=== PATIENT | male | born 1935 | race Caucasian/White ===

== ENCOUNTER → 2016-09-25 09:29 | Outpatient (CLI) | payer MEDICARE, OTHER ==
[2015-03-25 22:11] VITALS: BMI 23.8
[~2016-09-25 09:29] MED LIST: ASPIRIN EC81 M1 PO; BENICAR HCT 40-1 TA1 PO; BETAPACE240 MG PO; DEXILANT PO; FLAGYL500 MG PO; FLUTICASONE PRO16 GM NASAL; IPRAT-ALBUT 0.5-3 ML UPD; IRON PO; K-DUR20 MEQ PO; KLOR-CON 1010 MEQ PO; LASIX PO; LEVAQUIN500 MG PO; LUMIGAN 0.03 %2.5 ML EACH EYE; MAG-OX 400 MG400 MG PO; MULTI-DAY VITAM1 TAB PO; MYAMBUTOL400 MG PO; NEOMYCIN SULFA500 MG PO; NORVASC2.5 MG PO; POTASSIUM PO; RIFADIN300 MG PO; SINGULAIR10 MG PO; TESSALON PERLE100 MG PO; TRIBENZOR 40-51 EACH PO; VICODIN 5/500 T1 TAB PO; XALATAN 0.0052.5 ML EACH EYE; ZOFRAN4 MG PO
== END | disposition home or self-care (01) ==
LOC: D.RAD 09:29
DX: J44.9 Chronic obstructive pulmonary disease, unspecified (principal)

== ENCOUNTER → 2017-01-08 09:43 | Outpatient (CLI) | payer MEDICARE, OTHER ==
[2015-03-25 22:11] VITALS: BMI 23.8
[2017-01-08 10:34] LABS: BASOPHILS 0.3 % (0-2); EOSINOPHILS 2.5 % (0-7); HEMATOCRIT 29.5 % (42.0-54.0); HEMOGLOBIN 9.5 g/dL (13.5-17.5); IMMATURE GRANULOCYTES 0.3 % (0-5); LYMPHOCYTES 14.3 % (15-50); MCH 28.5 pg (26.0-34.0); MCHC 32.2 g/dL (31.0-37.0); MCV 88.6 fL (80.0-100.0); MEAN PLATELET VOLUME 9.8 fL (7.4-10.4); MONOCYTES 12.4 % (2-11); NEUTROPHILS 70.2 % (40-80); RBC 3.33 10x6/uL (4.20-6.10); RDW 15.4 % (11.5-14.5); WBC 7.2 10x3/uL (4.8-10.8)
[2017-01-08 10:47] LABS: PLATELET COUNT 225 10x3/uL (130-400)
[2017-01-08 10:53] LABS: ALBUMIN 3.2 g/dL (3.4-5.0); BILIRUBIN - DIRECT 0.05 mg/dL (0.00-0.30); BILIRUBIN - INDIRECT 0.15 mg/dL (0.00-1.00); BILIRUBIN - TOTAL 0.2 mg/dL (0.2-1.3); PROTEIN - SERUM 7.1 g/dL (6.4-8.2)
== END | disposition home or self-care (01) ==
LOC: D.RAD 09:00
PROVIDERS: Internal Medicine Pulmonary Disease
DX: A31.0 Pulmonary mycobacterial infection (principal)

== ENCOUNTER → 2017-03-12 10:27 | Outpatient (CLI) | payer MEDICARE, OTHER ==
[2015-03-25 22:11] VITALS: BMI 23.8
[~2017-03-12 10:27] MED LIST changes: +BETAPACE 80 MG80 MG PO; +GABAPENTIN100 MG PO; +NIFEDIPINE ER60 MG PO; +PLAVIX75 MG PO
== END | disposition home or self-care (01) ==
LOC: D.CT 10:27
DX: R04.2 Hemoptysis (principal)

== ENCOUNTER 2017-03-19 14:17 | Inpatient (IN) | payer MEDICARE, OTHER ==
--- NOTE | ~2017-03-19 | HEMODYNAMI ---
PATIENT:GABINO ESTRADA MEDICAL RECORD: [id number] : 33 [id number] ADMISSION DATE: 03/19/17 Generatedon:03/20/20179:18 Patient name: GABINO ESTRADA Patient #: [id number] SSN: : [id number] Date of study: 03/20/2017 Page: Of Hemodynamic Procedure Report Patient Data Patient Demographics Procedure consent was obtained First Name: GABINO Gender: Male Last Name: SEAN : 1935 [facility] Initial: Temo Age: 81 year(s) Patient #: [id number] Race: Unknown Additional ID: [id number] Contact details Address: [place] [address] State: [place] City: [place] Zip code: [address] Past Medical History Allergies Allergen Reaction Date Comments Reported Other allergy 03/20/2017 Ibuprofen Admission Admission Data Admission Date: 03/19/2017 Admission Time: 14:17 Room #: [facility] Lab Results Lab Result Date: 03/20/2017 Lab Result Time: 4:23 Biochemistry Name Units Result Min Max BUN mg/dl 21 --(----)-* 7 18 Creatinine mg/dl 1.4 --(----)*- 0.6 1.3 Potassium mmol/l 2.9 *-(----)-- 3.5 5.1 CBC Name Units Result Min Max Hematocrit % 32.2 *-(----)-- 42 54 Hemoglobin g/dl 10.4 *-(----)-- 13.5 17.5 Procedure Procedure Types Cath Procedure Diagnostic Procedure C [facility] w/Coronaries PCI Procedure Coronary Stent Initial Miscellaneous Procedures Moderate Sedation up to 30 minutes Procedure Description Procedure Date Procedure Date: 03/20/2017 Procedure Start Time: 8:56 Procedure End Time: 9:16 Procedure Staff Name Function Tres Baldwin MD Performing Physician Geoffrey Olvera RN Nurse Peyton Shanks RT Scrub Tavo King RT Monitor Procedure Data Cath Procedure Fluoroscopy Diagnostic fluoroscopy Total fluoroscopy Time: 5 time: 5 min min Diagnostic fluoroscopy Total fluoroscopy dose: 294 dose: 294 mGy mGy Contrast Material Contrast Material Type Amount (ml) Isovue 300 114 Entry Location Entry Primary Successful Side Size Upsize Upsize Entry Closure Succes sful Closure Location (Fr) 1 (Fr) 2 (Fr) Remarks Device Remarks Femoral Right 5 Fr 6 Fr Exoseal artery Short Estimated blood loss: 10 ml Diagnostic catheters Device Type Used For End Catheter Placement Cordis 5Fr Pigtail Procedure Catheter (MP) Cordis 5Fr JL 4.0 Procedure Catheter (MP) Cordis 5Fr 3DRC Catheter Procedure (MP) Procedure Complications No complications Procedure Medications Medication Administration Route Dosage Oxygen NC 2 l/min Heparin Flush Bag added to field 2 bags (1000units/500ml NS) 0.9% NaCl I.V. 100 ml/hr Radial Cocktail added to field 1 syringe (Verapomil 2mg/Nitro 400mcg/Heparin 1500units) Fentanyl I.V. 25 mcg Versed I.V. 0.5 mg Heparin Bolus I.V. 3000 units Hemodynamics Rest HGB: 10.4 (g/dl) Heart Rate: 69 (bpm) Pressure Samples Time Site Value (mmHg) Purpose Heart Use Rate(bpm) 9:01 LV 120/12,18 Snapshot 59 Snapshots Pre Cath Intra NCS Post Cath Vital Signs Time Heart Resp SPO2 etCO2 NIBP (mmHg) Rhythm Pain Sedation Rate (ipm) (%) (mmHg) Status Level (bpm) 8:38:15 68 22 94 0 176/101(149) NSR 0 (11) 10(A) , No pain 8:42:31 63 20 94 0 168/92(144) NSR 0 (11) 10(A) , No pain 8:46:43 64 19 93 0 151/102(132) NSR 0 (11) 10(A) , No pain 8:50:59 60 20 93 0 137/87(113) NSR 0 (11) 10(A) , No pain 8:55:15 60 20 89 0 140/78(124) NSR 0 (11) 9(A) , No pain 8:59:27 59 20 91 0 138/91(114) NSR 0 (11) 9(A) , No pain 9:03:43 60 23 88 0 143/83(122) NSR 0 (11) 9(A) , No pain 9:08:01 58 20 88 0 140/80(120) NSR 0 (11) 9(A) , No pain 9:12:19 59 22 89 0 122/80(109) NSR 0 (11) 9(A) , No pain 9:17:16 59 21 88 0 140/71(110) NSR 0 (11) 9(A) , No pain Medications Time Medication Route Dose Verified Delivered Reason Notes Effectiveness by by 8:36:41 Oxygen NC 2 l/min Tres Hale Per physician Denny Olvera RN 8:36:52 Heparin Flush added 2 bags Tres Hale used for Bag to Denny Olvera RN procedure (1000units/500ml field NS) 8:37:03 0.9% NaCl I.V. 100 Tres Hale Per physician ml/hr Denny Olvera RN 8:37:12 Radial Cocktail added 1 Tres Hale used for (Verapomil to syringe Denny Olvera RN procedure 2mg/Nitro field 400mcg/Heparin 1500units) 8:54:12 Fentanyl I.V. 25 mcg Tres Hale for sedation Denny Olvera RN 8:54:27 Versed I.V. 0.5 mg Tres Hale for sedation Denny Olvera RN 9:05:54 Heparin Bolus I.V. 3000 Tres Hale for units Denny Olvera RN anticoagulation Procedure Log Time Note 8:10:00 Geoffrey Olvera RN sent for patient. Start room use. 8:27:01 Time tracking: Regular hours 8:27:04 Plan of Care:Hemodynamics will remain stable., Cardiac rhythm will remain stable., Comfort level will be maintained., Respiratory function will remain adequate., Patient/ family verbilizes understanding of procedure., Procedure tolerated without complication., Recovers from procedure without complications.. 8:31:54 Patient received from Med II to CCL 3 Alert and oriented. Tansferred to table in Supine position. 8:31:56 Warm blankets applied, and jose hugger turned on for patient comfort. 8:31:56 Correct patient and procedure confirmed by team. 8:31:58 Signed procedure consent form obtained from patient. 8:36:41 Oxygen 2 l/min NC was administered by Geoffrey Olvera RN; Per physician; 8:36:52 Heparin Flush Bag (1000units/500ml NS) 2 bags added to field was administered by Geoffrey Olvera RN; used for procedure; 8:37:03 0.9% NaCl 100 ml/hr I.V. was administered by Geoffrey Olvera RN; Per physician; 8:37:12 Radial Cocktail (Verapomil 2mg/Nitro 400mcg/Heparin 1500units) 1 syringe added to field was administered by Geoffrey Olvera RN; used for procedure; 8:37:14 Vital chart was started 8:43:00 ECG and BP/O2 sat monitors applied to patient. 8:43:07 Baseline sample Acquired. 8:43:11 Rhythm: sinus rhythm 8:45:32 H&P Date Dictated: 03/19/2017 Within 30 days and on chart.. 8:45:34 Pre-procedure instructions explained to patient. 8:45:35 Pre-op teaching completed and patient verbalized understanding. 8:45:36 Family unavailable. 8:45:37 Patient NPO since Midnight. 8:45:45 Patient allergic to Other allergyIbuprofen 8:45:46 Is the patient allergic to Iodine/contrast media? No. 8:45:47 Is patient on blood thinner?Yes 8:45:49 ACC The patient was administered the following blood thiners within the last 24 hours: ACCPlavix 8:45:51 Patient diabetic? No. 8:45:53 Previous problem with sedation/anesthesia? No ? 8:45:54 Snore? Yes 8:45:55 Sleep apnea? No 8:45:55 Deviated septum? No 8:45:56 Opens mouth fully? Yes 8:45:57 Sticks out tongue? Yes 8:45:58 Airway obstruction? No ? 8:45:59 Dentures? No ? 8:46:02 Modified Rg's test Ulnar < 7 seconds 8:46:04 Patient pain scale 0/10 ?. 8:46:15 IV patent on arrival in left forearm with 0.9% NaCl at [facility]. 8:47:21 Lab Result : Potassium 2.9 mmol/l 8:47:21 Lab Result : Creatinine 1.4 mg/dl 8:47:21 Lab Result : BUN 21 mg/dl 8:47:21 Lab Result : Hemoglobin 10.4 g/dl 8:47:21 Lab Result : Hematocrit 32.2 % 8:47:24 Lab results completed and on chart. 8:47:26 Right Radial & Right Groin area was prepped with chlora-prep and draped in sterile fashion 8:47:27 Alarms reviewed by R. N. 8:47:27 Sharps counted by scrub and verified by R.N. 8:47:30 Use device set Radial Dx 8:47:34 Acist Manifold opened to sterile field. 8:47:34 Tegaderm 4 x 4 opened to sterile field. 8:47:34 Acist Hand Control opened to sterile field. 8:47:35 Acist Syringe opened to sterile field. 8:47:36 Medline Cath Pack opened to sterile field. 8:47:36 Bag Decanter opened to sterile field. 8:47:36 Terumo 6Fr Slender Glidesheath opened to sterile field. 8:47:37 St Jah 260cm J .035 wire opened to sterile field. 8:53:29 Zero performed for pressure channel P1 8:53:47 Physician arrived 8:53:48 --------ALL STOP TIME OUT------ 8:53:48 Final Timeout: patient, procedure, and site verified with staff and physician. All members of the team are in agreement. 8:53:49 Right Radial & Right Groin site verified by team. 8:53:51 Physical assessment completed. ASA score P 2 - A patient with mild systemic disease as per Tres Baldwin MD. 8:53:54 Sedation plan: IV Moderate Sedation Versed, Fentanyl 8:54:12 Fentanyl 25 mcg I.V. was administered by Geoffrey Olvera RN; for sedation; 8:54:27 Versed 0.5 mg I.V. was administered by Geoffrey Olvera RN; for sedation; 8:56:09 Procedure started. 8:56:09 Full Disclosure recording started 8:56:26 Local anesthetic to right radial artery with Lidocaine 2% by Tres Baldwin MD.INITIAL ACCESS ONLY 8:57:21 Local anesthetic to right femoral artery with Lidocaine 2% by Tres Baldwin MD.ADDITIONAL ACCESS 8:57:31 Use device set Multipack Set 8:57:37 Terumo 5Fr [place] Sheath opened to sterile field. 8:57:38 Diagnostic Infinity 5Fr Multipack catheter opened to sterile field. 8:59:01 A 5 Fr sheath was inserted into the Right Femoral artery 9:00:17 A Cordis 5Fr Pigtail Catheter (MP) was advanced over the wire and used for Procedure. 9:00:23 LV gram done using SUAREZ 9:00:26 Injector settings: Ml/sec: 10, Volume: 20, 9:00:27 LV hemodynamics recorded. 9:01:06 EF : 60 % 9:01:07 Catheter exchanged over wire. 9:01:12 A Cordis 5Fr JL 4.0 Catheter (MP) was advanced over the wire and used for Procedure. 9:01:45 LCA angiography performed. 9:02:50 Catheter exchanged over wire. 9:02:55 A Cordis 5Fr 3DRC Catheter (MP) was advanced over the wire and used for Procedure. 9:03:46 [employer] Launcher 6Fr 3DRC guide catheter opened to sterile field. 9:05:06 ScaleArcisper J 300cm 0.014 guide wire opened to sterile field. 9:05:07 [employer] BasixCompak Inflation Kit opened to sterile field. 9:05:14 Terumo 6Fr [place] Sheath opened to sterile field. 9:05:21 Catheter removed. 9:05:34 Sheath upsized to a 6 Fr Short. 9:05:42 6 Fr 3DRC guide catheter was inserted over the wire 9:05:47 whisper wire advanced. 9:05:54 Heparin Bolus 3000 units I.V. was administered by Geoffrey Olvera RN; for anticoagulation; 9:06:41 Wire advanced across lesion. 9:08:45 Inflation Number: 1 A Medtronic Integrity 3.5 X 15 stent was prepped and advanced across the Prox RCA. The stent was deployed at 21 RINA for 0:10 (min:sec). 9:08:46 Stent catheter was removed intact over wire. 9:08:50 Wire removed. 9:08:56 Guide Catheter removed. unable to get back-up support 9:09:02 Medtronic Launcher 6Fr AR 2.0 guide catheter opened to sterile field. 9:09:10 6 Fr AR 2 guide catheter was inserted over the wire 9:09:49 WHISPER wire advanced. 9:11:03 Inflation number: 2 The stent balloon was then re-inflated across the Prox RCA to 21 RINA for 0:10 (min:sec). 9:11:36 Inflation number: 3 The stent balloon was then re-inflated across the Prox RCA to 23 RINA for 0:10 (min:sec). 9:11:47 Stent catheter was removed intact over wire. 9:11:48 Wire removed. 9:11:48 Guide catheter removed. 9:12:05 Cordis 6Fr Exoseal opened to sterile field. 9:12:48 Sheath removed intact; hemostasis achieved with Exoseal to the Right Femoral artery. 9:12:50 Procedure ended.(Physican Out) 9:15:23 Fluoroscopy time 05.00 minutes. 9:15:31 Fluoroscopy dose: 294 mGy 9:15:31 Flurop Dose total: 294 9:15:34 Contrast amount:Isovue 300 114ml. 9:15:35 Sharps counted by scrub and verified by R.N. 9:15:36 Insertion/operative site no bleeding no hematoma. 9:15:38 Post-op/insertion site Right Femoral artery dressed using a 4 x 4 and Tegaderm. 9:15:42 Post right femoral artery:stable, soft, clean and dry 9:15:43 Post Procedure Pulses reassessed and unchanged 9:15:45 Post-procedure physical assessment completed. ASA score P 2 - A patient with mild systemic disease as per Tres Baldwin MD. 9:15:46 Post procedure rhythm: unchanged. 9:15:49 Estimated blood loss: 10 ml 9:15:50 Post procedure instruction explained to patient.Patient verbalizes understanding. 9:15:51 Patient needs reinforcement of post procedure teaching. 9:16:06 Procedure type changed to Cath procedure, Diagnostic procedure, LHC, LHC w/Coronaries, PCI procedure, Coronary Stent Initial, Miscellaneous Procedures, Moderate Sedation up to 30 minutes 9:16:28 Procedure and supply charges have been captured, reviewed, submitted and are correct. 9:16:30 Procedure Complication : No complications 9:16:32 Vital chart was stopped 9:16:32 See physician's report for complete and final results. 9:16:34 Report given to PCU. 9:16:36 Patient transfered to PCU with Stretcher. 9:16:37 Procedure ended. 9:16:37 Full Disclosure recording stopped 9:16:57 End room use (Document Last) Intervention Summary Intervention Notes Time ActionType Lesion and Equipment Action# Pressure Duration Attributes Used 9:08:45 Place stent Prox RCA Medtronic 1 21 00:10 Integrity 3.5 X 15 stent 9:11:03 Reinflate Prox RCA Medtronic 2 21 00:10 stent Integrity balloon 3.5 X 15 stent 9:11:36 Reinflate Prox RCA Medtronic 3 23 00:10 stent Integrity balloon 3.5 X 15 stent Device Usage Item Name Manufacture Quantity Catalog Hospital Part Current Minimal Lot# / Number Charge Number Stock Stock Serial# Code Acist Acist 1 [id number] 777545 890319 605132 5 [employer] Tegaderm 4 3M 1 [id number] 006175 633370 846555 5 x 4 Acist Hand Acist 1 27463 698196 455926 426277 5 [employer] Acist Acist 1 89104 218249 061010 424157 20 Syringe Medical Systems Inc Medline Cardinal 1 [id number] 335506 61788 116493 5 Cath Pack Health Bag Microtek 1 2002S 686515 10184 400066 5 [employer]olphin Inc. Terumo 6Fr Terumo 1 [id number] 015796 913165 363593 [address] Jah 1 454930 320666 726419 298487 30 260cm J .035 wire Terumo 5Fr Terumo 1 [id number] 397526 835282 226678 40 [place] Sheath Diagnostic Cardinal 1 [id number] 615897 95819 699778 30 Infinity Health 5Fr Multipack catheter Cordis 5Fr Cardinal 1 147538 5 Pigtail Health Catheter (MP) Cordis 5Fr Cardinal 1 597536 5 JL 4.0 Health Catheter (MP) Cordis 5Fr Cardinal 1 289354 5 3DRC Health Catheter (MP) Medtronic Medtronic 1 [id number] 516890 625813 018115 1 Launcher 6Fr 3DRC guide catheter Crenshaw Crenshaw 1 [id number] 831773 796446 441153 5 Whisper J Vascular 300cm 0.014 guide wire Merit Merit 1 [id number] 575837 462638 479687 15 Cogni[employer] Medical Inflation Kit Terumo 6Fr Terumo 1 [id number] 530552 257713 893455 40 [place] Sheath Medtronic Medtronic 1 [id number] 240378 341874 7 [id number] Integrity 3.5 X 15 stent Medtronic Medtronic 1 [id number] 090611 77156 985519 1 Launcher 6Fr AR 2.0 guide catheter Cordis 6Fr Cardinal 1 [id number] 867849 086726 427332 10 [facility] PowerSmart Signature Audit Elizabeth Stage Time Signature Unsigned Intra-Procedure 03/20/2017 Tavo King 9:18:32 AM RT(R) Signatures Monitor : Tavo King RT Signature : Date : Time : [address] [address]
[~2017-03-19 14:17] MED LIST changes: -BETAPACE 80 MG80 MG PO; -GABAPENTIN100 MG PO; -NIFEDIPINE ER60 MG PO; -PLAVIX75 MG PO
--- NOTE | 2017-03-19 14:35 | NUR ---
RECIVED PER WC FROM DR LNOGORIA OFFICE. ADMIT ASSESSMENT PER RN. SON AT SIDE.
[2017-03-19 15:19] LABS: BASOPHILS 0.7 % (0-2); EOSINOPHILS 5.2 % (0-7); HEMATOCRIT 32.2 % (42.0-54.0); HEMOGLOBIN 10.4 g/dL (13.5-17.5); IMMATURE GRANULOCYTES 0.2 % (0-5); LYMPHOCYTES 12.4 % (15-50); MCH 28.4 pg (26.0-34.0); MCHC 32.3 g/dL (31.0-37.0); MEAN PLATELET VOLUME 9.5 fL (7.4-10.4); MONOCYTES 16.7 % (2-11); NEUTROPHILS 64.8 % (40-80); PLATELET COUNT 247 10x3/uL (130-400); RBC 3.66 10x6/uL (4.20-6.10); RDW 15.4 % (11.5-14.5); WBC 4.6 10x3/uL (4.8-10.8)
[2017-03-19 15:33] VITALS: BP 164/72; BMI 24.4
[2017-03-19 15:57] LABS: APTT 36.8 SECONDS (22.8-39.4); INR 1.03 (0.85-1.17); PROTIME 13.4 SECONDS (11.6-15.0)
[2017-03-19 16:44] VITALS: BP 164/72
[2017-03-19 17:05] LABS: CALC OSMOLALITY 256 mosm/kg (275-300); CALCIUM 8.7 mg/dL (8.5-10.1); CARBON DIOXIDE 29.9 mmol/L (21.0-32.0); CHLORIDE - SERUM 87 mmol/L (98-107); CKMB 0.7 U/L (0.0-3.6); CREATININE - SERUM 1.3 mg/dL (0.6-1.3); GLUCOSE 98 mg/dL (74-106); POTASSIUM - SERUM 3.2 mmol/L (3.5-5.1); SODIUM 127 mmol/L (136-145); TROPONIN-I < 0.017 ng/mL (0.000-0.060); UREA NITROGEN 18 mg/dL (7-18); eGFR NON AFRICAN AMERICAN 56 mL/min (90-120)
--- NOTE | 2017-03-19 17:05 | NUR ---
SON REMAINS AT SIDE. WITHOUT CHANGES OR DISTRESS NOTED AT THIS TIME. DENIES NEEDS.
[2017-03-19] MEDS ORDERED: GABAPENTIN100 MG PO (18:49)
[2017-03-19 19:00] VITALS: BP 137/69
--- NOTE | 2017-03-19 21:11 | NUR ---
TYLENOL 500 MG TAB GIVEN FOR C/O PAIN TO BILATERAL FEET.
--- NOTE | 2017-03-20 02:23 | NUR ---
CALL LIGHT IN REACH. WILL CONTINUE WITH PLAN OF CARE. 58 SB ON TELEMETRY
--- NOTE | 2017-03-20 04:32 | NUR ---
RESTING WITH EYES CLOSED, RESPERATIONS EVEN, NO S/S DISTRESS NOTED.
[2017-03-20 05:16] LABS: CHLORIDE - SERUM 89 mmol/L (98-107); CKMB 0.5 U/L (0.0-3.6); CREATININE - SERUM 1.4 mg/dL (0.6-1.3); GLUCOSE 86 mg/dL (74-106); UREA NITROGEN 21 mg/dL (7-18); eGFR NON AFRICAN AMERICAN 51 mL/min (90-120)
[2017-03-20 05:23] LABS: CALC OSMOLALITY 254 mosm/kg (275-300); SODIUM 126 mmol/L (136-145)
[2017-03-20 05:43] LABS: POTASSIUM - SERUM 2.9 mmol/L (3.5-5.1); TROPONIN-I < 0.017 ng/mL (0.000-0.060)
--- NOTE | 2017-03-20 06:25 | NUR ---
SPOKE WITH DR BANERJEE, INFORMED OF PTS CRITICAL LOW POTASSIUM OF 2.9. ORDERS GIVEN TO PLACE PT ON ELETROLYTE PROTOCOL.
--- NOTE | 2017-03-20 06:35 | NUR ---
SPOKE WITH JOVANNY IN WET PAN MIXER, INFORMED HER OF PTS LOW POTASSIUM, DISCUSSED OPTIONS ON ELECTOLYTE PROTOCOL SINCE PT IS NPO FOR PROCEDURE, BOTH NURSES DECIDED THAT IT WOULD BE OK TO GIVE PO POTASSIUM WITH A SMALL AMOUNT OF WATER. POTASSIUM 20 MEQ GIVEN PER PROTOCOL, WILL CONT TO MONITOR.
--- NOTE | 2017-03-20 07:15 | NUR ---
ASSESSMENT DONE. DENIES NEEDS.
--- NOTE | 2017-03-20 08:25 | NUR ---
TO KEY ATTENDANT PER BED
--- NOTE | 2017-03-20 08:48 | CN ---
PATIENT NAME:GABINO ESTRADA MEDICAL RECORD: [id number] : 33 LOCATION:[address] ADMIT DATE: 03/19/17 ACCOUNT: [id number] CONSULTING PHYSICIAN: TURNER CAMPBELL MD REFERRING PHYSICIAN: MITALI STEPHENS DO DATE OF CONSULTATION: 03/19/2017 DIAGNOSES: 1. Dyspnea on exertion. 2. Coronary artery disease. 3. Previous percutaneous transluminal coronary angioplasty stent. 4. Hypertension. 5. Paroxysmal atrial fibrillation. HISTORY OF PRESENT ILLNESS: This is a gentleman who has had worsening shortness of breath, dyspnea on exertion. These are the same symptoms he had years ago when he had hemodynamically significant coronary artery disease, underwent PTCA stent. He has been seeing a lung doctor and being treated for this, but has continued to get worse. He presented to Dr. Stephens's office today. His systolic blood pressure was over 200. He does have a history of hypertension, for which he is on Benicar and Norvasc. He is also on sotalol for the atrial fibrillation. The EKG had ST-T abnormalities compatible with ongoing ischemia. PHYSICAL EXAMINATION: GENERAL APPEARANCE: Well-nourished, well-developed, appears stated age. Level of distress, comfortable. PSYCHIATRIC: Mental status, alert, normal affect. Orientation, oriented to time, place and person. EYES: Lids and conjunctiva, noninjected. No discharge, no pallor. ENT: Lips, teeth, gums, normal dentition. Oropharynx, no cyanosis, no pallor. NECK: Carotid arteries, bilateral normal upstroke, no bruits, no thrills. JUGULAR VEINS: No jugular venous pressure or distention. CERVICAL LYMPH NODES: Nontender, nonenlarged. THYROID: Not enlarged. Nontender. No nodules. LUNGS: Respiratory effort, unlabored. CHEST: Normal curvature. No thoracic deformity. No chest wall tenderness. Percussion, resonant. Auscultation, clear. No wheezes, no rales, no rhonchi. CARDIOVASCULAR: Precordial exam, nondisplaced. No heaves or pericardial thrills. Rate and rhythm, regular. Heart sounds, normal S1, normal S2. No S3, no gallop, no rub. Systolic murmur, not heard. Diastolic murmur, not heard. EXTREMITIES: No cyanosis, no edema. Peripheral pulses, full and equal in all extremities, except as noted. No bruits appreciated. ABDOMEN: Soft, nondistended. Normal aorta. No bruit. Nontender. No masses. Liver, nontender, no hepatomegaly. Spleen, nontender, no splenomegaly. MUSCULOSKELETAL: No joint tenderness. No joint swelling. No erythema. NEUROLOGICAL: Normal gait, normal strength, normal tone. SKIN: Warm and dry. REVIEW OF SYSTEMS: The patient reports easy bruising but reports no swollen glands. The patient reports no fever, no night sweats, no significant weight gain, no significant weight loss. No significant exercise tolerance. The patient reports no dry eyes, no irritation, no vision change. Patient reports no difficulty hearing and no ear pain. Patient reports no frequent nose bleeds or nose and sinus problems. Patient reports on arm pain on exertion. No shortness of breath while lying down. No history of heart murmur. Patient CONSULT REPORT [id number] SEANGABINO HARDY reports no cough, no wheezing or coughing up blood. Patient reports no abdominal pain, no vomiting. Normal appetite. No diarrhea and not vomiting blood. No nausea and no constipation. Patient reports no incontinence. No difficulty urinating. No hematuria. No increased frequency. Patient reports no muscle aches. No weakness, no arthralgias, no back pain. No swelling of the extremities. Patient reports no abnormal mole, no jaundice, no rashes. Reports no loss of consciousness. No weakness and no numbness. No seizures, dizziness, or headaches. The patient reports no depression, no sleep disturbance, feeling safe in a relationship and no alcohol abuse. Patient reports on fatigue. Reports no runny nose or sinus pressure. No itching, no hives, and no frequent sneezing. OVERALL IMPRESSION: 1. Hypertension. At this time, we will discontinue the amlodipine and start him on Procardia-XL 60. We will see if this will control his blood pressure better than the amlodipine. He is bradycardic with heart rate in the 50s, so we will avoid beta-donte usage. If he continues to be hypertensive, we can add Cardura to his medical regimen. 2. Worsening shortness of breath, anginal equivalent with ischemic changes on EKG. Most likely, he has recurrent hemodynamically significant coronary artery disease. We will proceed with coronary angiography in the a.m. Further care depends upon the findings of the angiography. TRANSINT:[id number] Voice Confirmation ID: [id number] DOCUMENT ID: [id number] TURNER CAMPBELL MD at 0848 CC: [id number] DICTATION DATE: 03/19/17 1549 BUFFER COPPER: 03/19/[address] [facility] [address] [place] [address]
--- NOTE | 2017-03-20 09:26 | NUR ---
IN BOLT LOADER AT THIS TIME. WILL CONT. PLAN OF CARE.
--- NOTE | 2017-03-20 09:40 | NUR ---
RETURN FROM INFANTRYMAN PER BED . , RT TIARA FELTONG C/D/I, PULSE PALP
[2017-03-20 09:58] VITALS: BMI 24.4
[2017-03-20 15:26] VITALS: BP 144/73
--- NOTE | 2017-03-20 17:48 | NUR ---
SON AT SIDE. WITHOUT CHANGES OR DISTRESS NOTED AT THIS TIME. DENIES NEEDS.
[2017-03-20 20:00] VITALS: BP 116/63
--- NOTE | 2017-03-20 20:34 | NUR ---
HS MEDS GIVEN WITH FRESH ICE WATER, TYLENOL 1 TAB GIVEN FOR C/O PAIN TO FEET. BED LOW, CL IN REACH.
[2017-03-21] VITALS: BP 117/76
--- NOTE | 2017-03-21 03:28 | NUR ---
RESTING WITH EYES CLOSED, RESPERATIONS EVEN, NO S/S DISTRESS NOTED.
[2017-03-21 04:00] VITALS: BP 123/78
--- NOTE | 2017-03-21 05:39 | NUR ---
LYING IN BED WITH CALL LIGHT IN REACH. WILL CONTINUE WITH PLAN OF CARE.
[2017-03-21 05:52] LABS: BASOPHILS 0.4 % (0-2); HEMATOCRIT 31.6 % (42.0-54.0); HEMOGLOBIN 10.5 g/dL (13.5-17.5); IMMATURE GRANULOCYTES 0.2 % (0-5); LYMPHOCYTES 11.6 % (15-50); MCH 29.2 pg (26.0-34.0); MCHC 33.2 g/dL (31.0-37.0); MEAN PLATELET VOLUME 9.3 fL (7.4-10.4); MONOCYTES 15.4 % (2-11); NEUTROPHILS 65.4 % (40-80); PLATELET COUNT 246 10x3/uL (130-400); RBC 3.59 10x6/uL (4.20-6.10); RDW 15.8 % (11.5-14.5); WBC 5.3 10x3/uL (4.8-10.8)
[2017-03-21 06:15] LABS: ANION GAP 11.1 mmol/L (8-16); CALCIUM 8.7 mg/dL (8.5-10.1); CARBON DIOXIDE 29.8 mmol/L (21.0-32.0); CREATININE - SERUM 1.7 mg/dL (0.6-1.3); MAGNESIUM - SERUM 2.2 mg/dL (1.8-2.4); POTASSIUM - SERUM 3.9 mmol/L (3.5-5.1)
--- NOTE | 2017-03-21 07:29 | HP ---
PATIENT: GABINO ESTRADA MEDICAL RECORD: [id number] ACCOUNT: [id number] LOCATION:[address] : [birth year] ADMISSION DATE: 03/19/17 HISTORY AND PHYSICAL EXAMINATION HISTORY OF PRESENT ILLNESS: An 81-year-old male presented to the clinic with complaint of chest pressure, shortness of breath, and extreme dyspnea on exertion. He was at the cleaner and trimmer's office, had extremely high blood pressure, was sent over here for further evaluation. PAST MEDICAL HISTORY: Significant for paroxysmal atrial fibrillation, COPD, coronary artery disease, hypertension, hyperlipidemia, and CKD. CURRENT MEDICATIONS: Amlodipine 5 mg at bedtime, aspirin 81 mg daily, fluticasone nasal spray, gabapentin 100 mg t.i.d., ipratropium/albuterol via nebulizer, Singulair, multivitamin, nortriptyline 50 mg q.h.s., olmesartan/hydrochlorothiazide 40/25 one daily, ProAir inhaler p.r.n., Pulmicort Flexhaler, and Sotalol 80 mg 1 p.o. b.i.d. ALLERGIES: IBUPROFEN. REVIEW OF SYSTEMS: GENERAL: No known change in weight or appetite. HEENT: No cephalgia, visual changes, tinnitus, epistaxis or dysphagia. CARDIOVASCULAR: Extreme dyspnea on exertion, chest pressure. PULMONARY: Denies hemoptysis. Denies night sweats. GASTROINTESTINAL: Denies hematemesis, hematochezia or melena. GENITOURINARY: Denies dysuria. MUSCULOSKELETAL: No acute changes. ENDOCRINE: Denies polyuria, polydipsia, or polyphagia. PHYSICAL EXAMINATION: VITAL SIGNS: Weight 174, blood pressure is 202/108, heart rate 56, respirations 18, and temperature 97.6. Initial O2 sats 84% and after resting came up to 90%. HEENT: Head: Normocephalic, atraumatic. Eyes: Pupils equal, round, reactive to light and accommodation. Extraocular muscles intact. Conjunctiva was not injected. Ears: Canals patent, TMs are intact. Nose: Nares patent without drainage. Throat: No erythema, no exudates. NECK: Supple. No lymphadenopathy. No JVD. HEART: Regular, slow. LUNGS: Clear to auscultation bilaterally. Breathing is nonlabored. ABDOMEN: Soft, nontender. Bowel sounds all 4 quadrants. EXTREMITIES: Present times 4, no edema. NEUROLOGIC: No focal deficits. SKIN: Warm and dry. No rash. LABORATORY DATA: EKG shows sinus rhythm, slow with a rate of 59, nonspecific ST changes, QS in V1 and V2, ST elevation in V3, ST depression in V5 and V6. Abnormal EKG. ASSESSMENT AND PLAN: Dyspnea on exertion, abnormal EKG, known coronary artery disease, COPD, hypertension, and paroxysmal AFib. The patient is admitted. Son who is present will drive him to the admissions. He is admitted to PCU with telemetry. Cardiac enzymes, chemistry, CBC, PT, and PTT on admission. Consult HISTORY AND PHYSICAL [id number] GABINO ESTRADA Dr., cardiology. I discussed case with Dr. Baldwin. He will see the patient this afternoon. O2 at 2 liters via nasal cannula, amlodipine 5 mg b.i.d., aspirin 81 mg daily, Plavix 75 mg daily, DuoNeb via nebulizer q.i.d., olmesartan/hydrochlorothiazide 40/25 1 daily, clonidine 0.1 one p.o. t.i.d. p.r.n. systolic greater than 170. Chemistry, CK-MB, troponin in a.m. Chest x-ray on admission. Sotalol 80 mg b.i.d. EKG in a.m. IV normal saline TKO. TRANSINT:[id number] Voice Confirmation ID: [id number] DOCUMENT ID: [id number] MITALI STEPHENS DO at 0729 CC: [id number] DICTATION DATE: 03/19/17 1619 LOADER OPERATOR: 03/19/17 1724 ADM IN [facility] [address] [place] [address]
[2017-03-21] MEDS ORDERED: PLAVIX75 MG PO (07:37)
[2017-03-21] MEDS ORDERED: NIFEDIPINE ER60 MG PO (07:38)
[2017-03-21] MEDS ORDERED: BETAPACE 80 MG80 MG PO (07:39)
[2017-03-21 08:00] VITALS: BP 139/83
--- NOTE | 2017-03-21 08:19 | DS ---
PATIENT:GABINO ESTRADA :33 MEDICAL RECORD: [id number] DISCHARGE SUMMARY ADMISSION DATE: 03/19/17 DISCHARGE DATE: DATE OF ADMISSION: 03/19/2017 DATE OF DISCHARGE: 03/21/2017 ADMISSION DIAGNOSES: Acute dyspnea on exertion, hypertension, chronic obstructive pulmonary disease, abnormal EKG, known cardiovascular disease. DISCHARGE DIAGNOSES: Dyspnea on exertion, abnormal EKG, cardiovascular disease with 75% occlusion of RCA resolved with stent placement, hypertension resolved with adjustment of medications. HOSPITAL COURSE: The patient was admitted from the clinic with dyspnea on exertion, chest pressure, EKG abnormalities, hypertension with systolic greater than 180. The patient was admitted to PCU. Cardiology consulted. Blood pressure medications adjusted. Underwent cardiac catheterization with stent to the RCA with resolution. The patient is feeling much better, ambulating independently, tolerating regular diet, anxious to go home. Discharged home in significantly improved condition. PHYSICAL EXAMINATION: VITAL SIGNS ON DISCHARGE: Temperature 98.4, heart rate 58, respirations 18, blood pressure 123/78, O2 sats 92% on room air. GENERAL: Alert, oriented, no distress. HEART: Regular rate and rhythm. LUNGS: Clear. ABDOMEN: Soft. EXTREMITIES: Present times 4. No edema. NEUROLOGIC: Intact. SKIN: Warm and dry. No rash. LABORATORY DATA: CBC: White count 5.3, hemoglobin 10.5, hematocrit 31.6, platelets 246. Chemistry shows sodium of 131, potassium of 3.9, chloride 94, bicarb 29.8, BUN 32, creatinine post cath at 1.7, glucose is 89. The patient will follow up in the clinic in 1 week. Follow up with cardiology as scheduled. DISCHARGE MEDICATIONS: Per med rec. TRANSINT:[id number] Voice Confirmation ID: [id number] DOCUMENT ID: [id number] MITALI STEPHENS DO at 0819 CC: [id number] DICTATION DATE: 03/21/17 0745 SUPERINTENDENT DIVISION: 03/21/17 0814 ADM IN [facility] [address] [place] [address]
--- NOTE | 2017-03-21 10:01 | NUR ---
IV AND TELEMETRY DCD. DC PLANS GIVEN. UNDERSTANDING VOICED. ESCORTED TO CAR BY W/C.
--- NOTE | 2017-04-04 14:14 | OP ---
PATIENT NAME: GABINO ESTRADA MEDICAL RECORD: [id number] :34 LOCATION:D.M[address].2122 ADMISSION DATE:03/19/17 SURGEON: TURNER CAMPBELL MD DATE OF OPERATION: 03/20/2017 PROCEDURES: 1. PTCA stent to RCA. 2. Left heart catheterization. 3. Selective coronary angiography. 4. Left ventriculogram. INDICATION: Angina and coronary artery disease. PROCEDURE IN DETAIL: After informed consent was obtained and after a detailed explanation of the risks, benefits as well as alternative therapies, the patient elected to proceed with angiogram and angioplasty. The right femoral area was prepped and draped in normal sterile fashion. The right femoral artery was cannulated via modified Seldinger technique with placement of 6-Iranian sheath. All catheters exchanged through this sheath. FINDINGS: The left ventriculogram was performed in standard 30-degree SUAREZ view, reveals preserved cardiac wall motion and ejection fraction 55%. SELECTIVE CORONARY ANGIOGRAPHY: 1. Left main showed no significant angiographic disease. 2. Left anterior descending has moderate irregularities, but no flow-limiting stenosis. 3. The left circumflex has moderate irregularities, but no flow-limiting stenosis. 4. The right coronary has previously placed stent. This is with 75% in-stent restenosis. PTCA STENT OF THE RIGHT CORONARY: Bare-metal stent was used secondary to intolerance of Plavix and active nosebleed. This was addressed with a 3.5 x 15 mm Integrity stent taken to 23 atmospheres. Result was 0% residual stenosis. OVERALL IMPRESSION: Successful percutaneous transluminal coronary angioplasty stent of the right coronary going from 75% initial stenosis to 0% residual. TRANSINT:[id number] Voice Confirmation ID: [id number] DOCUMENT ID: [id number] TURNER CAMPBELL MD at 1414 CC: MITALI STEPHENS DO [id number] DICTATION DATE: 03/20/17915 SCREW MACHINE OPERATOR SINGLE SPINDLE: 03/20/17 1120 DIS IN 03/21/[address] [address]
== END 2017-03-21 10:04 | disposition home or self-care (01) | DRG 247 ==
LOC: D.M2 14:17
PROVIDERS: Internal Medicine Interventional Cardiology; ADMIT Family Medicine
PROC: B2111ZZ Fluoroscopy of Multiple Coronary Arteries using Low Osmolar Contrast (ICD-10-PCS; 2017-03-20)
PROC: B2151ZZ Fluoroscopy of Left Heart using Low Osmolar Contrast (ICD-10-PCS; 2017-03-20)
PROC: 027034Z Dilation of Coronary Artery, One Artery with Drug-eluting Intraluminal Device, Percutaneous Approach (ICD-10-PCS; principal; 2017-03-20 09:45)
PROC: 4A023N7 Measurement of Cardiac Sampling and Pressure, Left Heart, Percutaneous Approach (ICD-10-PCS; 2017-03-20 09:45)
DX: I25.119 Atherosclerotic heart disease of native coronary artery with unspecified angina pectoris (principal); T82.855A Stenosis of coronary artery stent, initial encounter; Y83.8 Other surgical procedures as the cause of abnormal reaction of the patient, or of later complication, without mention of misadventure at the time of the procedure; J44.9 Chronic obstructive pulmonary disease, unspecified; I12.9 Hypertensive chronic kidney disease with stage 1 through stage 4 chronic kidney disease, or unspecified chronic kidney disease; N18.9 Chronic kidney disease, unspecified; E78.5 Hyperlipidemia, unspecified; I48.0 Paroxysmal atrial fibrillation; E87.6 Hypokalemia; R94.31 Abnormal electrocardiogram [ECG] [EKG]; Z95.5 Presence of coronary angioplasty implant and graft

== ENCOUNTER → 2017-04-23 19:09 | Outpatient (CLI) | payer MEDICARE, OTHER ==
[~2017-04-23 19:09] MED LIST changes: +BETAPACE 80 MG80 MG PO; +GABAPENTIN100 MG PO; +NIFEDIPINE ER60 MG PO; +PLAVIX75 MG PO
[2017-04-25 16:13] LABS: AFB SPECIMEN PROCESSING Concentration (())
[2017-06-13 11:18] LABS: ACID FAST CULTURE Negative (()); ACID FAST SMEAR Negative (())
== END | disposition home or self-care (01) ==
LOC: D.LABREF 19:09
PROVIDERS: Student in an Organized Health Care Education/Training Program
DX: A31.0 Pulmonary mycobacterial infection (principal); Z51.81 Encounter for therapeutic drug level monitoring; Z79.2 Long term (current) use of antibiotics

== ENCOUNTER → 2017-06-18 14:26 | Outpatient (CLI) | payer MEDICARE, OTHER ==
[2017-06-18 18:07] LABS: BASOPHILS 0.5 % (0-2); EOSINOPHILS 1.9 % (0-7); HEMATOCRIT 23.9 % (42.0-54.0); IMMATURE GRANULOCYTES 0.2 % (0-5); LYMPHOCYTES 11.7 % (15-50); MCH 22.7 pg (26.0-34.0); MCHC 29.7 g/dL (31.0-37.0); MCV 76.4 fL (80.0-100.0); MEAN PLATELET VOLUME 9.5 fL (7.4-10.4); MONOCYTES 11.4 % (2-11); NEUTROPHILS 74.3 % (40-80); PLATELET COUNT 286 10x3/uL (130-400); RBC 3.13 10x6/uL (4.20-6.10); RDW 18.2 % (11.5-14.5); WBC 5.7 10x3/uL (4.8-10.8)
[2017-06-18 18:14] LABS: HEMOGLOBIN 7.5 g/dL (13.5-17.5)
[2017-06-18 19:37] LABS: ALBUMIN 2.9 g/dL (3.4-5.0); ANION GAP 10.5 mmol/L (8-16); BILIRUBIN - TOTAL 0.26 mg/dL (0.2-1.3); CALCIUM 8.1 mg/dL (8.5-10.1); CARBON DIOXIDE 31.3 mmol/L (21.0-32.0); CREATININE - SERUM 1.6 mg/dL (0.6-1.3); POTASSIUM - SERUM 3.8 mmol/L (3.5-5.1); PROTEIN - SERUM 6.8 g/dL (6.4-8.2)
== END | disposition home or self-care (01) ==
LOC: D.LABREF 14:26
PROVIDERS: Student in an Organized Health Care Education/Training Program
DX: A31.0 Pulmonary mycobacterial infection (principal); Z51.81 Encounter for therapeutic drug level monitoring; Z79.2 Long term (current) use of antibiotics

== ENCOUNTER → 2017-06-24 09:44 | Outpatient (CLI) | payer MEDICARE, OTHER | END | disposition home or self-care (01) | LOC: D.RAD 09:44 | DX: J18.9 Pneumonia, unspecified organism (principal) ==

== ENCOUNTER 2017-08-13 09:07 | Day surgery (SDC) | payer MEDICARE, OTHER ==
[~2017-08-13] VITALS: Ht 188 cm; Wt 81.6 kg
--- NOTE | ~2017-08-13 | OP ---
PATIENT NAME: GABINO ESTRADA MEDICAL RECORD: [id number] :34 LOCATION:D.[facility] ADMISSION DATE: SURGEON: SHARATH TATE DO DATE OF OPERATION: 08/13/2017 PROCEDURE: EGD with biopsy and polypectomy as well as colonoscopy with polypectomy and biopsy. SCOPE: Olympus video gastroscope and pediatric colonoscope. MEDICATIONS: Propofol 500 mg IV per anesthesia. ESTIMATED BLOOD LOSS: Less than 5 mL. COMPLICATIONS: None. FINDINGS: Informed consent was given. The patient was made comfortable with the above medication. After reaching an adequate level of sedation by slow IV push, the patient was placed on his left side. The gastroscope was placed through the mouth under direct visualization and advanced with ease to the second portion of the duodenum. The upper, middle, and lower thirds of the esophagus appeared normal. At the GE junction, there was mild evidence of LA class A reflux-induced esophagitis. The endoscope was advanced beyond the GE junction into the stomach and retroflexed to view the cardia, which appeared normal. In the fundus and body of the stomach, there were a few gastric polyps visualized. A single polyp was biopsied. This polyp was benign appearing and sessile, but measured approximately 4-5 mm in diameter and appeared slightly hemorrhagic. After the biopsy was performed, there was a moderate amount of bleeding, which was not stopping on its own. For this reason, the polyp was removed using a snare and a single endoclip was placed for hemostasis measured successfully. Throughout the entire stomach, there was the appearance of atrophy of the mucosa which could be consistent with atrophic gastritis. Random biopsies were taken to submit for histopathology and to rule out H. pylori. The endoscope was advanced beyond the pylorus into the duodenum which appeared normal in its entirety. Random biopsies were taken to submit for histopathology and to rule out etiologies such as celiac disease which could contribute to anemia. Endoscopic appearances were normal of the small bowel. The endoscope was withdrawn from the patient. The patient tolerated the procedure well and there were no complications. Next, the patient was turned around. 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 The endoscope was advanced through the rectum under direct visualization to the cecum with ease. The appendiceal orifice and ileocecal valve were visualized. The entire colon had normal appearing mucosa. There was extensive diverticulosis of the left side of the colon without evidence of diverticulitis. Retroflexion was performed in the rectum with visualization of large, grade II to III internal hemorrhoids without active bleeding. There were multiple polyps visualized on today's examination. They ranged in size from 3 mm to 1.2 cm. They were all removed using the hot snare. The largest polyp which was located in the ascending colon was removed using endoscopic mucosal resection technique with a saline pillow injection and snare removal. Random biopsy was taken in the colon to rule out microscopic colitis. The previous anastomosis from a sigmoid resection was visualized. It appeared normal without anastomotic ulcerations or other abnormalities. The endoscope was withdrawn from the patient. The patient tolerated the procedure well and there were no complications. OPERATIVE REPORT [id number] GABINO ESTRADA IMPRESSION: 1. LA class A reflux-induced esophagitis. 2. Gastric polyp, which was removed using snare cautery and an endoclip placed for hemostasis. 3. Atrophic gastritis. 4. Multiple polyps removed from the ascending colon and transverse colon with hot snare and a single EMR technique on 1 polyp. One of these sites did have a moderate amount of bleeding after the polyp was removed, so a Hemoclip was placed in the colon as well. There was a random biopsy taken to rule out microscopic colitis. 5. Extensive diverticula of the left side of the colon. 6. Grade III internal hemorrhoids. 7. Prior intervention in the form of anastomosis. PLAN AND RECOMMENDATIONS: 1. Discharge home when recovery parameters are met. 2. Follow up biopsy specimen results. 3. Look for other sources of anemia. 4. Can consider small bowel video capsule endoscopy if there is healing concerns of a GI source of bleeding. 5. No further colonoscopies are necessary based on the patient's age. 6. We will give a trial of cholestyramine to bulk the stools and Imodium as needed to slow down bowels regarding the diarrhea. TRANSINT:[id number] Voice Confirmation ID: [id number] DOCUMENT ID: [id number] SHARATH TATE DO at 1135 CC: [id number] DICTATION DATE: 08/13/17 1222 DISPATCHER RELAY: 08/13/17 1254 [facility] 08/13/17 [place] [address]
[2017-08-13 10:06] VITALS: BP 136/78; Ht 188 cm; Wt 81.6 kg
[2017-08-13 10:06] LABS: BASOPHILS 0.5 % (0-2); HEMATOCRIT 33.5 % (42.0-54.0); HEMOGLOBIN 10.4 g/dL (13.5-17.5); IMMATURE GRANULOCYTES 0.2 % (0-5); LYMPHOCYTES 20.2 % (15-50); MCH 29.5 pg (26.0-34.0); MCV 95.2 fL (80.0-100.0); MONOCYTES 12.2 % (2-11); NEUTROPHILS 65.9 % (40-80); RBC 3.52 10x6/uL (4.20-6.10); RDW 25.9 % (11.5-14.5); WBC 5.8 10x3/uL (4.8-10.8)
[2017-08-13 10:15] LABS: ANION GAP 11.5 mmol/L (8-16); CALCIUM 8.6 mg/dL (8.5-10.1); CARBON DIOXIDE 30.6 mmol/L (21.0-32.0); CREATININE - SERUM 1.5 mg/dL (0.6-1.3); POTASSIUM - SERUM 3.1 mmol/L (3.5-5.1)
[2017-08-13 10:38] LABS: PLATELET COUNT 181 10x3/uL (130-400)
== END 2017-08-13 14:00 | disposition home or self-care (01) ==
LOC: D.OPS 09:07
PROVIDERS: Anesthesiology
DX: D64.9 Anemia, unspecified (principal); R19.7 Diarrhea, unspecified; D12.2 Benign neoplasm of ascending colon; D12.3 Benign neoplasm of transverse colon; K64.2 Third degree hemorrhoids; K29.40 Chronic atrophic gastritis without bleeding; K21.0 Gastro-esophageal reflux disease with esophagitis; K31.7 Polyp of stomach and duodenum; I10 Essential (primary) hypertension; Z01.812 Encounter for preprocedural laboratory examination

== ENCOUNTER → 2017-11-05 10:17 | Outpatient (CLI) | payer MEDICARE, OTHER ==
[2017-08-13 10:06] VITALS: BMI 23.1
== END | disposition home or self-care (01) ==
LOC: D.CT 10:17
DX: A31.0 Pulmonary mycobacterial infection (principal)

== ENCOUNTER → 2017-12-23 08:31 | Outpatient (CLI) | payer MEDICARE, OTHER ==
[2017-08-13 10:06] VITALS: BMI 23.1
== END | disposition home or self-care (01) ==
LOC: D.RT 12-17 08:00 → D.CT 12-17 09:00 → D.RT 08:00
DX: J44.9 Chronic obstructive pulmonary disease, unspecified (principal)

== ENCOUNTER → 2018-08-19 11:03 | Outpatient (CLI) | payer MEDICARE, OTHER ==
[2017-08-13 10:06] VITALS: BMI 23.1
== END | disposition home or self-care (01) ==
LOC: D.CT 11:03
PROVIDERS: ATTEND Internal Medicine Pulmonary Disease
DX: J44.9 Chronic obstructive pulmonary disease, unspecified (principal)

== ENCOUNTER 2018-08-27 12:19 | Inpatient (IN) | payer MEDICARE, OTHER ==
[~2018-08-27] VITALS: Ht 188 cm; Wt 70.9 kg
[2018-08-27] MEDS ORDERED: PROCRIT/EP10000 UNIT SQ (12:28)
[2018-08-27] MEDS ORDERED: ASPIRIN EC81 M1 PO (12:28)
[2018-08-27 13:01] LABS: APTT 36.2 SECONDS (22.8-39.4); BASOPHILS 0.6 % (0-2); EOSINOPHILS 1.3 % (0-7); HEMATOCRIT 35.8 % (42.0-54.0); IMMATURE GRANULOCYTES 0.1 % (0-5); INR 1.02 (0.85-1.17); LYMPHOCYTES 14.9 % (15-50); MCHC 30.7 g/dL (31.0-37.0); MCV 97.5 fL (80.0-100.0); MEAN PLATELET VOLUME 10.4 fL (7.4-10.4); MONOCYTES 11.4 % (2-11); NEUTROPHILS 71.7 % (40-80); PROTIME 12.9 SECONDS (11.6-15.0); RBC 3.67 10x6/uL (4.20-6.10); RDW 20.5 % (11.5-14.5); WBC 7.1 10x3/uL (4.8-10.8)
[2018-08-27 13:05] LABS: ALBUMIN 3.1 g/dL (3.4-5.0); ALKALINE PHOSPHATASE 110 U/L (46-116); ALT (SGPT) 20 U/L (10-68); BILIRUBIN - TOTAL 0.23 mg/dL (0.2-1.3); CALC OSMOLALITY 274 mosm/kg (275-300); CALCIUM 9.4 mg/dL (8.5-10.1); CARBON DIOXIDE 34.4 mmol/L (21.0-32.0); CHLORIDE - SERUM 98 mmol/L (98-107); CREATININE - SERUM 1.7 mg/dL (0.6-1.3); GLUCOSE 93 mg/dL (74-106); POTASSIUM - SERUM 4.3 mmol/L (3.5-5.1); PROTEIN - SERUM 8.5 g/dL (6.4-8.2); SODIUM 136 mmol/L (136-145); UREA NITROGEN 22 mg/dL (7-18); eGFR NON AFRICAN AMERICAN 41 mL/min (90-120)
[2018-08-27 13:13] LABS: PLATELET COUNT 307 10x3/uL (130-400)
[2018-08-27 13:16] LABS: CKMB 0.4 U/L (0.0-3.6); CREATINE KINASE 23 UL (21-232); PRO BNP 1657 pg/mL (0-450); TROPONIN-I < 0.017 ng/mL (0.000-0.060)
[2018-08-27] MEDS ORDERED: NEURONTIN 300300 MG PO (17:57)
[2018-08-27 20:00] VITALS: BP 127/63
[2018-08-27 22:20] VITALS: BP 127/63; BMI 20.5
[2018-08-28] VITALS (13 sets, daily range): BP systolic 90–144; BP diastolic 45–88; Ht 188 cm; Wt 70.9 kg
[2018-08-28 05:49] LABS: APTT 31.9 SECONDS (22.8-39.4); INR 1.12 (0.85-1.17); PROTIME 13.9 SECONDS (11.6-15.0)
[2018-08-28 06:01] LABS: BASOPHILS 0 % (0-2); EOSINOPHILS 0.2 % (0-7); HEMATOCRIT 33.4 % (42.0-54.0); HEMOGLOBIN 10.2 g/dL (13.5-17.5); IMMATURE GRANULOCYTES 0.2 % (0-5); LYMPHOCYTES 8.6 % (15-50); MCH 29.9 pg (26.0-34.0); MCHC 30.5 g/dL (31.0-37.0); MCV 97.9 fL (80.0-100.0); MONOCYTES 0.6 % (2-11); NEUTROPHILS 90.4 % (40-80); PLATELET COUNT 264 10x3/uL (130-400); RBC 3.41 10x6/uL (4.20-6.10); RDW 20.7 % (11.5-14.5)
[2018-08-28 06:03] LABS: ANION GAP 11.9 mmol/L (8-16); CALCIUM 8.6 mg/dL (8.5-10.1); CARBON DIOXIDE 28.2 mmol/L (21.0-32.0); CREATININE - SERUM 1.7 mg/dL (0.6-1.3); POTASSIUM - SERUM 4.1 mmol/L (3.5-5.1); WBC 5.1 10x3/uL (4.8-10.8)
[2018-08-28 13:52] LABS: % SATURATION 9 % (15-55); IRON 20 ug/dl (35-150); TOTAL IRON BIND CAPACITY 215 ug/dl (260-445); UNSAT IRON BIND CAPACITY 195 ug/dl (150-375)
[2018-08-28 14:10] LABS: MAGNESIUM - SERUM 2.3 mg/dL (1.8-2.4)
[2018-08-29 04:35] LABS: BASOPHILS 0 % (0-2); EOSINOPHILS 0 % (0-7); HEMOGLOBIN 9.4 g/dL (13.5-17.5); IMMATURE GRANULOCYTES 0.3 % (0-5); LYMPHOCYTES 3.2 % (15-50); MCH 29.3 pg (26.0-34.0); MCHC 29.4 g/dL (31.0-37.0); MCV 99.7 fL (80.0-100.0); MEAN PLATELET VOLUME 10.7 fL (7.4-10.4); MONOCYTES 2.4 % (2-11); NEUTROPHILS 94.1 % (40-80); PLATELET COUNT 224 10x3/uL (130-400); RBC 3.21 10x6/uL (4.20-6.10); WBC 18.1 10x3/uL (4.8-10.8)
[2018-08-29 04:49] LABS: ANION GAP 6.9 mmol/L (8-16); CALCIUM 7.9 mg/dL (8.5-10.1); CARBON DIOXIDE 33.4 mmol/L (21.0-32.0); CREATININE - SERUM 1.9 mg/dL (0.6-1.3); POTASSIUM - SERUM 4.3 mmol/L (3.5-5.1)
[2018-08-29 08:15] LABS: FOLATE (FOLIC ACID) - SERUM >20.0 ng/mL (>3.0)
[2018-08-29 08:48] VITALS: BP 128/68
[2018-08-29 12:25] VITALS: BP 104/56
[2018-08-29 15:59] VITALS: BP 125/67
[2018-08-29 20:44] VITALS: BP 112/76
[2018-08-30 00:54] VITALS: BP 123/61
[2018-08-30 04:00] VITALS: BP 120/68
[2018-08-30 04:44] LABS: BASOPHILS 0 % (0-2); EOSINOPHILS 0 % (0-7); HEMATOCRIT 31.8 % (42.0-54.0); HEMOGLOBIN 9.4 g/dL (13.5-17.5); IMMATURE GRANULOCYTES 0.3 % (0-5); LYMPHOCYTES 3.6 % (15-50); MCH 29.2 pg (26.0-34.0); MCHC 29.6 g/dL (31.0-37.0); MCV 98.8 fL (80.0-100.0); MEAN PLATELET VOLUME 11.3 fL (7.4-10.4); MONOCYTES 2.6 % (2-11); NEUTROPHILS 93.5 % (40-80); PLATELET COUNT 214 10x3/uL (130-400); RBC 3.22 10x6/uL (4.20-6.10); RDW 19.8 % (11.5-14.5); WBC 14.7 10x3/uL (4.8-10.8)
[2018-08-30 05:02] LABS: ANION GAP 8.9 mmol/L (8-16); CALCIUM 7.5 mg/dL (8.5-10.1); CARBON DIOXIDE 31.2 mmol/L (21.0-32.0); CREATININE - SERUM 1.9 mg/dL (0.6-1.3); POTASSIUM - SERUM 4.1 mmol/L (3.5-5.1)
[2018-08-30 07:58] VITALS: BP 106/53
[2018-08-30 11:22] VITALS: BP 121/61
--- NOTE | 2018-08-30 15:57 | MORECARE ---
CASE MANAGEMENT DISCHARGE SUMMARY PATIENT: GABINO ESTRADA UNIT: [id number] ADM DATE: 08/27/18 AGE: 83 : 34 SEX: M ROOM/BED: D.2108 AUTHOR: GISSEL HOLLAND PHYSICIAN: REFERRING PHYSICIAN: DIXON FIGUEROA MD DATE OF SERVICE: 08/30/18 Discharge Plan Patient Name: GABINO ESTRADA Facility: [facility]:[place] : 1935 Planned Disposition: Home Anticipated Discharge Date: Discharge Date: Expected LOS: Initial Reviewer: [email or web address] Initial Review Date: 08/27/2018 Generated: 08/30/18 4:57 pm Patient Name: GABINO ESTRADA Page 79675 at 1557 All edits/amendments must be made on the electronic document DICTATION DATE: 08/30/18 1556 FERRY CAPTAIN: JAG 08/30/18 1556 RPT#: [id number] DC DATE: STATUS: ADM IN [facility] [address] [place] [address] END OF REPORT
--- NOTE | 2018-08-30 16:04 | MORECARE ---
CASE MANAGEMENT DISCHARGE SUMMARY PATIENT: GABINO THACKER UNIT: [id number] ADM DATE: 08/27/18 AGE: 83 : 34 SEX: M ROOM/BED: D.2108 AUTHOR: GISSEL HOLLAND PHYSICIAN: REFERRING PHYSICIAN: DIXON FIGUEROA MD DATE OF SERVICE: 08/30/18 Discharge Plan Patient Name: GABINO THACKER Facility: [facility]:[place] : 1935 Planned Disposition: Home Anticipated Discharge Date: Discharge Date: Expected LOS: Initial Reviewer: [email or web address] Initial Review Date: 08/27/2018 Generated: 08/30/18 5:04 pm DCPIA - Discharge Planning Initial Assessment Updated by [email or web address]: Melba Tee on 08/30/18 3:59 pm * Is the patient Alert and Oriented? Yes * How many steps to enter\exit or inside your home? four/back * PCP DR Cespedes * Pharmacy Mail order [facility] * Preadmission Environment Home Alone * ADLs Independent * Equipment Nebulizer Oxygen * Other Equipment Denies any additional DME * List name and contact numbers for known caregivers / representatives who currently or will assist patient after discharge: Pratik Thacker- son- [phone] * Verbal permission to speak to the caregivers and representatives has been obtained from the patient. Yes * Community resources currently utilized None * Please name any agencies selected above. Patient states he is not utilizing any services at this time. Had [facility] previously. * Additional services required to return to the preadmission environment? No * Can the patient safely return to the preadmission environment? Yes * Has this patient been hospitalized within the prior 30 days at any hospital? No Last DP export: 08/30/18 2:57 p Patient Name: GABINO THACKER Page 41234 at 1604 All edits/amendments must be made on the electronic document DICTATION DATE: 08/30/181602 TOP LOADER: JAG 08/30/18 160 RPT#: [id number] DC DATE: STATUS: ADM IN [facility] [address] [place] [address] END OF REPORT
[2018-08-30 16:10] VITALS: BP 132/75
--- NOTE | 2018-08-30 16:16 | MORECARE ---
CASE MANAGEMENT DISCHARGE SUMMARY PATIENT: GABINO THACKER UNIT: [id number] ADM DATE: 08/27/18 AGE: 83 : 34 SEX: M ROOM/BED: D.2101 AUTHOR: AMALIADOC PHYSICIAN: REFERRING PHYSICIAN: DIXON FIGUEROA MD DATE OF SERVICE: 08/30/18 Discharge Plan Patient Name: GABINO THACKER Facility: [facility]:[place] : 1935 Planned Disposition: Home Anticipated Discharge Date: Discharge Date: Expected LOS: Initial Reviewer: [email or web address] Initial Review Date: 08/27/2018 Generated: 08/30/18 5:16 pm Comments DCP- Discharge Planning Updated by [email or web address]: Melba Tee on 08/30/18 3:[address] CM MET WITH THE PATIENT, HIS SON, DAUGHTER IN LAW AND GRANDSON AT THE BEDSIDE. HE GAVE PERMISSION TO SPEAK WITH THEM PRESENT. HE LIVES ALONE HIS IN A HALF-WAY AT THIS TIME. HIS SON AND FAMILY LIVES NEARBY AND ASSIST HIM IF NEEDED . HE HAS SOMEONE WHO COMES WEEKLY TO CLEAN HIS HOUSE. THERE ARE FOUR STEPS TO ENTER HIS BACK DOOR. HE FEELS SAFE IN HIS HOME AND PLANS TO RETURN TO HOME WITHOUT ANY HOME HEALTH OR COMMUNITY SERVICES. IN THE PAST HE HAS UTILIZED [facility] ON [address]. PCP- [facility]- MAIL ORDER AND [facility] DME- PROVIDER LINCARE- PORTABLE AND STATIONARY OXYGEN, NEBULIZER CM ADVISED A VPK TEACHER IS AVAILABLE SHOULD HE HAVE ANY NEEDS. CM TO FOLLOW. DCPIA - Discharge Planning Initial Assessment Updated by [email or web address]: Melba Tee on 08/30/18 3:59 pm * Is the patient Alert and Oriented? Yes * How many steps to enter\exit or inside your home? four/back * PCP DR Stephens * Pharmacy Mail order [facility] * Preadmission Environment Home Alone * ADLs Independent * Equipment Nebulizer Oxygen * Other Equipment Denies any additional DME * List name and contact numbers for known caregivers / representatives who currently or will assist patient after discharge: Pratik Thacker- son- [phone] * Verbal permission to speak to the caregivers and representatives has been obtained from the patient. Yes * Community resources currently utilized None * Please name any agencies selected above. Patient states he is not utilizing any services at this time. Had [facility] previously. * Additional services required to return to the preadmission environment? No * Can the patient safely return to the preadmission environment? Yes * Has this patient been hospitalized within the prior 30 days at any hospital? No Last DP export: 08/30/18 3:04 p Patient Name: GABINO THACKER Page [id number] at 1616 All edits/amendments must be made on the electronic document DICTATION DATE: 08/30/181615 RAC SPECIALIST: JAG 08/30/181615 RPT#: [id number] DC DATE: STATUS: ADM IN [facility] [address] [place] [address] END OF REPORT
[2018-08-30 20:00] VITALS: BP 116/62
[2018-08-31] VITALS: BP 118/57
[2018-08-31 04:00] VITALS: BP 92/42
[2018-08-31 05:57] LABS: BASOPHILS 0 % (0-2); EOSINOPHILS 0 % (0-7); HEMATOCRIT 30.4 % (42.0-54.0); IMMATURE GRANULOCYTES 0.3 % (0-5); LYMPHOCYTES 3.6 % (15-50); MCH 29.3 pg (26.0-34.0); MCHC 29.6 g/dL (31.0-37.0); MEAN PLATELET VOLUME 11.3 fL (7.4-10.4); MONOCYTES 4.9 % (2-11); NEUTROPHILS 91.2 % (40-80); PLATELET COUNT 198 10x3/uL (130-400); RBC 3.07 10x6/uL (4.20-6.10); WBC 12.1 10x3/uL (4.8-10.8)
[2018-08-31 06:15] LABS: ANION GAP 6.8 mmol/L (8-16); CALCIUM 7.4 mg/dL (8.5-10.1); CARBON DIOXIDE 33.5 mmol/L (21.0-32.0); CREATININE - SERUM 1.7 mg/dL (0.6-1.3); POTASSIUM - SERUM 4.3 mmol/L (3.5-5.1)
[2018-08-31 07:53] VITALS: BP 92/48
[2018-08-31 11:19] VITALS: BP 101/55
[2018-08-31 14:46] VITALS: BP 124/69
[2018-08-31 18:07] LABS: ACID FAST SMEAR Negative (()); AFB SPECIMEN PROCESSING Concentration (())
[2018-08-31 20:00] VITALS: BP 106/54
[2018-09-01 00:59] VITALS: BP 102/52
[2018-09-01 05:47] LABS: BASOPHILS 0 % (0-2); EOSINOPHILS 0 % (0-7); HEMATOCRIT 28.5 % (42.0-54.0); HEMOGLOBIN 8.6 g/dL (13.5-17.5); IMMATURE GRANULOCYTES 0.4 % (0-5); LYMPHOCYTES 6.9 % (15-50); MCH 29.2 pg (26.0-34.0); MCHC 30.2 g/dL (31.0-37.0); MEAN PLATELET VOLUME 10.5 fL (7.4-10.4); MONOCYTES 7.7 % (2-11); PLATELET COUNT 175 10x3/uL (130-400); RBC 2.95 10x6/uL (4.20-6.10); RDW 19.9 % (11.5-14.5); WBC 9.4 10x3/uL (4.8-10.8)
[2018-09-01 05:49] VITALS: BP 103/54
[2018-09-01 05:56] LABS: MCV 96.6 fL (80.0-100.0)
[2018-09-01 06:15] LABS: ANION GAP 4.3 mmol/L (8-16); CALCIUM 7.3 mg/dL (8.5-10.1); CARBON DIOXIDE 33.9 mmol/L (21.0-32.0); CREATININE - SERUM 1.8 mg/dL (0.6-1.3); POTASSIUM - SERUM 4.2 mmol/L (3.5-5.1)
[2018-09-01] MEDS ORDERED: MUCINEX DM ER1 EAC1 PO (11:12)
[2018-09-01] MEDS ORDERED: CIPRO500 MG PO ×2 (11:13→14:12)
[2018-09-01 15:55] VITALS: BP 127/68
--- NOTE | 2018-09-01 16:07 | MORECARE ---
CASE MANAGEMENT DISCHARGE SUMMARY PATIENT: GABINO THACKER UNIT: [id number] ADM DATE: 08/27/18 AGE: 83 : 34 SEX: M ROOM/BED: D.2101 AUTHOR: AMALIADOC PHYSICIAN: REFERRING PHYSICIAN: DIXON FIGUEROA MD DATE OF SERVICE: 09/01/18 Discharge Plan Patient Name: GABINO THACKER Facility: [facility]:[place] : 1935 Planned Disposition: Home Anticipated Discharge Date: 09/01/18 Discharge Date: 09/01/2018 Expected LOS: 5 Initial Reviewer: [email or web address] Initial Review Date: 08/27/2018 Generated: 09/01/18 5:07 pm Comments DCP- Discharge Planning Updated by [email or web address]: Ish Moser on 09/01/18 2:[address] Patient Name: GABINO THACKER Encounter No: [id number] : 1935 Primary Insurance: MEDICARE A & B Anticipated DC Date: 09-01-2018 Planned Disposition: Home DCP follow-up note: CM MET WITH PT IN ROOM TO DISCUSS DISCHARGE NEEDS AND PLANNING. CM DISCUSSED AVAILABILITY OF HOME HEALTH, REHAB SERVICES AND MEDICAL EQUIPMENT. PT DENIES DISCHARGE NEEDS. FAMILY TO TRANSPORT HOME AT DISCHARGE. IMPORTANT MESSAGE FROM MEDICARE PROVIDED AND EXPLAINED. Ish Moser, CASE MANAGEMENT DCP- Discharge Planning Updated by [email or web address]: Melba Tee on 08/30/18 3:[address] CM MET WITH THE PATIENT, HIS SON, DAUGHTER IN LAW AND GRANDSON AT THE BEDSIDE. HE GAVE PERMISSION TO SPEAK WITH THEM PRESENT. HE LIVES ALONE HIS IN A FCI AT THIS TIME. HIS SON AND FAMILY LIVES NEARBY AND ASSIST HIM IF NEEDED . HE HAS SOMEONE WHO COMES WEEKLY TO CLEAN HIS HOUSE. THERE ARE FOUR STEPS TO ENTER HIS BACK DOOR. HE FEELS SAFE IN HIS HOME AND PLANS TO RETURN TO HOME WITHOUT ANY HOME HEALTH OR COMMUNITY SERVICES. IN THE PAST HE HAS UTILIZED [facility] ON [address]. PCP- [facility]- MAIL ORDER AND [facility] DME- PROVIDER LINCARE- PORTABLE AND STATIONARY OXYGEN, NEBULIZER CM ADVISED A BUSINESS SYSTEMS ADVISOR IS AVAILABLE SHOULD HE HAVE ANY NEEDS. CM TO FOLLOW. DCPIA - Discharge Planning Initial Assessment Updated by [email or web address]: Melba Saravias on 08/30/18 3:59 pm * Is the patient Alert and Oriented? Yes * How many steps to enter\exit or inside your home? four/back * PCP DR Stephens * Pharmacy Mail order [facility] * Preadmission Environment Home Alone * ADLs Independent * Equipment Nebulizer Oxygen * Other Equipment Denies any additional DME * List name and contact numbers for known caregivers / representatives who currently or will assist patient after discharge: Pratik Thacker- [facility]- [phone] * Verbal permission to speak to the caregivers and representatives has been obtained from the patient. Yes * Community resources currently utilized None * Please name any agencies selected above. Patient states he is not utilizing any services at this time. Had [facility] previously. * Additional services required to return to the preadmission environment? No * Can the patient safely return to the preadmission environment? Yes * Has this patient been hospitalized within the prior 30 days at any hospital? No Coverage Notice Reviewer: [email or web address] Priti Moser Notice Issued Date-Time: 09/01/2018 12:05 Notice Type: IM Discharge Notice Notice Delivered To: Patient Relationship to Patient: Fishing Tool Technician Oil Well Name: Delivery Method: HAND - Hand Delivered Sangeetha Days: Prior Verbal Notification: Recipient Understood Notice: Yes Recipient Signature: Yes Med Rec Note Co-signed by Attending: Coverage Notice Comment: Last DP export: 08/30/18 3:16 p Patient Name: GABINO THACKER Page 96070 at 1607 All edits/amendments must be made on the electronic document DICTATION DATE: 09/01/181606 BONUS CLERK: JAG 09/01/18 160 RPT#: [id number] DC DATE:09/01/18 STATUS: DIS IN [facility] [address] [place] [address] END OF REPORT
--- NOTE | 2018-09-01 17:29 | MORECARE ---
CASE MANAGEMENT DISCHARGE SUMMARY PATIENT: GABNIO THACKER UNIT: [id number] ADM DATE: 08/27/18 AGE: 83 : 34 SEX: M ROOM/BED: D.2108 AUTHOR: AMALIA,DOC PHYSICIAN: REFERRING PHYSICIAN: DIXON FIGUEROA MD DATE OF SERVICE: 09/01/18 Discharge Plan Patient Name: GABINO THACKER Facility: [facility]:[place] : 1935 Planned Disposition: Home Anticipated Discharge Date: 09/01/18 Discharge Date: 09/01/2018 Expected LOS: 5 Initial Reviewer: [id number] Initial Review Date: 08/27/2018 Generated: 09/01/18 6:28 pm Comments DCP- Discharge Planning Updated by [email or web address]: Ish Moser on 09/01/18 4:[address] Patient Name: GABINO THACKER Encounter No: [id number] : 1935 Primary Insurance: MEDICARE A & B Anticipated DC Date: 09-01-2018 Planned Disposition: Home DCP follow-up note: CM MET WITH PT IN ROOM TO DISCUSS DISCHARGE NEEDS AND PLANNING. CM DISCUSSED AVAILABILITY OF HOME HEALTH, REHAB SERVICES AND MEDICAL EQUIPMENT. PT DENIES DISCHARGE NEEDS. FAMILY TO TRANSPORT HOME AT DISCHARGE. IMPORTANT MESSAGE FROM MEDICARE PROVIDED AND EXPLAINED. Ish Moser, CASE MANAGEMENT Appended by Ish Moser on 09/01/2018 17:22 CDT: LATE ENTRY: PRIOR TO DISCHARGE, CM SPOKE TO PT IN ROOM REGARDING HIS HOME VEST THERAPY. PT DENIES NEED OF ASSISTANCE IN ARRANGING THIS, PT REPORTS THE VEST HAS BEEN OBTAINED BY [facility] AND IS THERE FOR HOME DELIVERY AND ONCE DELIVERED, "THE LADY FROM [facility]" IS COMING TO PT'S HOME TO FIT AND INSTRUCT ON USE. PT DENIED DISCHARGE NEEDS. ADALID MORALES DCP- Discharge Planning Updated by [id number]: Melba Tee on 08/30/18 3:[address] CM MET WITH THE PATIENT, HIS SON, DAUGHTER IN LAW AND GRANDSON AT THE BEDSIDE. HE GAVE PERMISSION TO SPEAK WITH THEM PRESENT. HE LIVES ALONE HIS IN A INTERMEDIATE AT THIS TIME. HIS SON AND FAMILY LIVES NEARBY AND ASSIST HIM IF NEEDED . HE HAS SOMEONE WHO COMES WEEKLY TO CLEAN HIS HOUSE. THERE ARE FOUR STEPS TO ENTER HIS BACK DOOR. HE FEELS SAFE IN HIS HOME AND PLANS TO RETURN TO HOME WITHOUT ANY HOME HEALTH OR COMMUNITY SERVICES. IN THE PAST HE HAS UTILIZED [facility]. PCP- [facility]- MAIL ORDER AND [facility] DME- PROVIDER ANNEMARIE- PORTABLE AND STATIONARY OXYGEN, NEBULIZER CM ADVISED A GENERATOR TECHNICIAN IS AVAILABLE SHOULD HE HAVE ANY NEEDS. CM TO FOLLOW. DCPIA - Discharge Planning Initial Assessment Updated by [id number]: Melba Tee on 08/30/18 3:59 pm * Is the patient Alert and Oriented? Yes * How many steps to enter\\exit or inside your home? four/back * PCP DR Stephens * Pharmacy Mail order [facility] * Preadmission Environment Home Alone * ADLs Independent * Equipment Nebulizer Oxygen * Other Equipment Denies any additional DME * List name and contact numbers for known caregivers / representatives who currently or will assist patient after discharge: Pratik Thacker- [facility]- [phone] * Verbal permission to speak to the caregivers and representatives has been obtained from the patient. Yes * Community resources currently utilized None * Please name any agencies selected above. Patient states he is not utilizing any services at this time. Had [facility] previously. * Additional services required to return to the preadmission environment? No * Can the patient safely return to the preadmission environment? Yes * Has this patient been hospitalized within the prior 30 days at any hospital? No Coverage Notice Reviewer: [id number] - Ish Moser Notice Issued Date-Time: 09/01/2018 12:05 Notice Type: IM Discharge Notice Notice Delivered To: Patient Relationship to Patient: Substance Abuse Therapist Name: Delivery Method: HAND - Hand Delivered Sangeetha Days: Prior Verbal Notification: Recipient Understood Notice: Yes Recipient Signature: Yes Med Rec Note Co-signed by Attending: Coverage Notice Comment: Last DP export: 09/01/18 3:07 p Patient Name: GABINO THACKER Page 88025 at 1729 All edits/amendments must be made on the electronic document DICTATION DATE: 09/01/181727 OPEN CUT EXAMINER: JAG 09/01/181727 RPT#: [id number] DC DATE:09/01/18 STATUS: DIS IN [facility] [address] [address] END OF REPORT
--- NOTE | 2018-09-02 14:39 | EC ---
PATIENT:GABINO ESTRADA DATE OF SERVICE: 08/27/18 SEX: M MEDICAL RECORD: [id number] DATE OF : [birth year] LOCATION:D.M2 D.210 AGE OF PATIENT: 83 ADMISSION DATE: 08/27/18 REFERRING PHYSICIAN: INTERPRETING PHYSICIAN: TURNER BALDWIN MD ECHOCARDIOGRAM REPORT ECHO CHARGES 4 ECHO COMPLETE Date: 08/28/18 CLINICAL DIAGNOSIS: CHF ECHOCARDIOGRAPHIC MEASUREMENTS (adult normal given) AC root (d.<3.7cm) 3.4 cm LV Septum d (<1.2 cm> 1.7 cm Valve Excursion 2.2 cm LV Septum (systole) 2.3 cm Left Atria (s.<4.0cm> 3.7 cm LVPW d(<1.2cm) 1.6 cm RV (d.<2.3cm) 2.7 cm LVPW (sytole) 2.2 cm LV diastole(<5.6CM) 5.7 cm MV E-F(>70mm/sec) cm LV systole 3.3 cm LVOT Diameter 2.1 cm MV exc.(>10mm) cm Est.ejection fraction (50-75%) % DOPPLER: LVIT cm/sec A 104 cm/sec E 77.0 cm/sec LA cm/sec RVSP 38.0 mmHg LVOT 109 cm/sec AOP1/2T m/s Asc. Ao 190 cm/sec RVOT 72.0 cm/sec RA cm/sec PA 110 cm/sec AV Gradient Peak 15.0 mmHg AV Mean 7.0 mmHg AV Area 2.2 cm MV Gradient Peak 5.7 mmHg MV Mean 2.0 mmHg MV Area cm COMMENTS: Group President: Pamela POSADASOE Operating Room Assistant: 1 Dr. Baldwin TAPE# PACS Pericardial Effusion N DATE OF SERVICE: 08/28/2018 FINDINGS: 1. Left ventricular chamber size is within normal limits. Left ventricular systolic function is normal. Overall ejection fraction 55% to 60%. 2. Left atrium is within normal limits at 3.7 cm. Right atrium and right ventricular chamber sizes are mildly dilated. 3. Valvular structures have normal structure and motion. 4. Doppler interrogation reveals trace mitral regurgitation, trace tricuspid regurgitation, no other valvular insufficiency or stenosis. Pulmonary systolic ECHOCARDIOGRAM REPORT [id number] GABINO ESTRADA pressure is estimated 38 mmHg. 5. No evidence of pericardial effusion or left ventricular thrombus. TRANSINT:[id number] Voice Confirmation ID: [id number] DOCUMENT ID: [id number] TURNER BALDWIN MD at 1439 CC: [id number] DICTATION DATE: 08/28/181651 SCIENTIFIC RESEARCH ASSOCIATE: 08/28/18 2332 DIS IN 09/01/18 [place] [id number] [place] [id number]
[2018-09-04 15:11] LABS: FUNGUS STAIN Final report (())
== END 2018-09-01 15:58 | disposition home or self-care (01) | DRG 177 ==
LOC: D.ER 12:19 → D.M2 16:08 → D.EDHOLD 16:08 → D.M2 16:20
PROVIDERS: Family Medicine; Internal Medicine Pulmonary Disease; ADMIT Internal Medicine Nephrology; ATTEND Internal Medicine Nephrology
PROC: 0B948ZZ Drainage of Right Upper Lobe Bronchus, Via Natural or Artificial Opening Endoscopic (ICD-10-PCS; 2018-08-28)
PROC: 0B988ZZ Drainage of Left Upper Lobe Bronchus, Via Natural or Artificial Opening Endoscopic (ICD-10-PCS; 2018-08-28)
PROC: 0B918ZZ Drainage of Trachea, Via Natural or Artificial Opening Endoscopic (ICD-10-PCS; 2018-08-28)
PROC: 0B958ZZ Drainage of Right Middle Lobe Bronchus, Via Natural or Artificial Opening Endoscopic (ICD-10-PCS; 2018-08-28)
PROC: 0B938ZZ Drainage of Right Main Bronchus, Via Natural or Artificial Opening Endoscopic (ICD-10-PCS; 2018-08-28)
PROC: 0B978ZZ Drainage of Left Main Bronchus, Via Natural or Artificial Opening Endoscopic (ICD-10-PCS; 2018-08-28)
PROC: 0B968ZZ Drainage of Right Lower Lobe Bronchus, Via Natural or Artificial Opening Endoscopic (ICD-10-PCS; 2018-08-28)
PROC: 0B9B8ZZ Drainage of Left Lower Lobe Bronchus, Via Natural or Artificial Opening Endoscopic (ICD-10-PCS; 2018-08-28)
PROC: 0B998ZZ Drainage of Lingula Bronchus, Via Natural or Artificial Opening Endoscopic (ICD-10-PCS; 2018-08-28)
PROC: 0B928ZZ Drainage of Carina, Via Natural or Artificial Opening Endoscopic (ICD-10-PCS; principal; 2018-08-28 11:00)
DX: A31.0 Pulmonary mycobacterial infection (principal); J96.22 Acute and chronic respiratory failure with hypercapnia; J96.21 Acute and chronic respiratory failure with hypoxia; R04.2 Hemoptysis; N17.9 Acute kidney failure, unspecified; J47.0 Bronchiectasis with acute lower respiratory infection; J30.9 Allergic rhinitis, unspecified; I12.9 Hypertensive chronic kidney disease with stage 1 through stage 4 chronic kidney disease, or unspecified chronic kidney disease; N18.9 Chronic kidney disease, unspecified; N40.0 Benign prostatic hyperplasia without lower urinary tract symptoms; D50.9 Iron deficiency anemia, unspecified; I25.10 Atherosclerotic heart disease of native coronary artery without angina pectoris; E66.01 Morbid (severe) obesity due to excess calories; Z68.20 Body mass index [BMI] 20.0-20.9, adult; J18.9 Pneumonia, unspecified organism; Z86.718 Personal history of other venous thrombosis and embolism

== ENCOUNTER → 2019-02-09 13:36 | Outpatient (CLI) | payer MEDICARE, OTHER ==
[~2019-02-09 13:36] MED LIST changes: +CIPRO500 MG PO; +MUCINEX DM ER1 EAC1 PO; +NEURONTIN 300300 MG PO; +PROCRIT/EP10000 UNIT SQ
[2019-02-10 16:08] LABS: ACID FAST SMEAR Negative (()); AFB SPECIMEN PROCESSING Concentration (())
== END | disposition home or self-care (01) ==
LOC: D.CT 13:36
PROVIDERS: ATTEND Internal Medicine Pulmonary Disease
DX: J44.9 Chronic obstructive pulmonary disease, unspecified (principal)

== ENCOUNTER → 2019-02-17 13:45 | Outpatient (CLI) | payer MEDICARE, OTHER | END | disposition home or self-care (01) | LOC: D.RT 01-26 08:00 | PROVIDERS: ATTEND Internal Medicine Pulmonary Disease | DX: J44.9 Chronic obstructive pulmonary disease, unspecified (principal) ==

== ENCOUNTER 2019-05-28 18:12 | Inpatient (IN) | payer MEDICARE, OTHER ==
[~2019-05-28] VITALS: Ht 188 cm; Wt 81.6 kg
--- NOTE | ~2019-05-28 | CN ---
PATIENT NAME:GABINO THACKER MEDICAL RECORD: [id number] : [birth year] LOCATION:D.MS Mo2229 ADMIT DATE: 05/28/19 ACCOUNT: [id number] CONSULTING PHYSICIAN: SYLVAIN MARIE MD REFERRING PHYSICIAN: JAH VERONICA MD DATE OF CONSULTATION: 05/29/2019 CONSULT REQUESTING PHYSICIAN: Dr. Pond REASON FOR CONSULTATION: Bilateral pneumonia and acute exacerbation of chronic obstructive pulmonary disease. HISTORY OF PRESENT ILLNESS: Mr. Thacker is an 83-year-old gentleman who has a history of severe COPD, chronic hypoxic respiratory failure, and bronchiectasis. Also, he has a history of Mycobacterium pneumonia with the pulmonary nodules. The patient is sick for the last few days. He was seen in urgent care and was sent home with Zithromax and possible steroid. He was given Rocephin injection, but the patient was not getting any better and came into the ER. Chest radiograph showed bilateral infiltrate. He denies any fever and chill, no night sweats. REVIEW OF SYSTEMS: As in history of present illness. PAST MEDICAL HISTORY: 1. COPD of severe degree. 2. Chronic hypoxic respiratory failure. 3. Bronchiectasis. 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 5. Emphysema. 6. Chronic interstitial lung disease. 7. Hypertension. 8. Coronary artery disease, status post angioplasty. 9. Arthritis. PAST SURGICAL HISTORY: 1. He has appendectomy. 2. He has cardiac catheterization and stent placement. 3. He has colon resection. ALLERGIES: HE IS ALLERGIC TO IBUPROFEN. MEDICATIONS: [employer] is reviewed. PERSONAL AND SOCIAL HISTORY: The patient is an ex-smoker. He is a nondrinker. FAMILY HISTORY: Significant for cardiovascular diseases. PHYSICAL EXAMINATION: GENERAL: Now, the patient is lying comfortably in bed. He is not in acute distress. VITAL SIGNS: The blood pressure is 144/86, pulse is 62, respiration is 18, temperature 98.1, and SPO2 is 97% on 2 liters nasal cannula. HEENT: Conjunctivae are pink. Sclerae are not icteric. NECK: Supple, no JVD. CHEST: The chest excursion is minimal on both sides. There are bilateral CONSULT REPORT [id number] GABINO THACKER crackles, wheeze on forceful expiration. HEART: Rhythm regular, normal sound, no murmur. ABDOMEN: Soft, bowel sounds present. No hepatosplenomegaly. RECTAL: Deferred. EXTREMITIES: No cyanosis, no clubbing, no pedal edema. CENTRAL NERVOUS SYSTEM: The patient is awake and alert. There is no obvious cranial nerve abnormality. The gait was not tested. LABORATORY DATA: CBC: WBC 7.4, hemoglobin 9.6, hematocrit 30.7, the platelet count 206. Chemistry: Sodium is 139, potassium 4.2, BUN 36, creatinine 2.1. Chest radiograph, there are bilateral patchy infiltrate. IMPRESSION: 1. Hlhcb-lf-goerpag hypoxic respiratory failure. 2. Bilateral pneumonia, most likely community-acquired pneumonia. 3. Acute exacerbation of severe chronic obstructive pulmonary disease. 4. Ublsq-ws-wziwhco kidney disease. 5. Bronchiectasis. 6. Interstitial lung disease. RECOMMENDATION: 1. Continue Zithromax and Rocephin IV. 2. Methylprednisolone IV. He was started on Brovana and budesonide nebulizer. 3. Albuterol/ipratropium nebulizer. 4. Supplemental oxygen. 5. Repeat the labs and chest radiograph in the morning. Discussed with the family. Thank you for involving me in the care of Mr. Thacker. TRANSINT:[id number] Voice Confirmation ID: [id number] DOCUMENT ID: [id number] SYLVAIN MARIE MD CC: [id number] DICTATION DATE: 05/29/191799 RIVER TRANSPORTATION WORKER: 05/29/19 185 ADM IN [facility] [address] [place] [address]
[2019-05-28 18:36] LABS: BASOPHILS 0.2 % (0-2); EOSINOPHILS 2.4 % (0-7); HEMATOCRIT 33.7 % (42.0-54.0); HEMOGLOBIN 10.8 g/dL (13.5-17.5); IMMATURE GRANULOCYTES 1.4 % (0-5); LYMPHOCYTES 12.5 % (15-50); MCH 33.2 pg (26.0-34.0); MCV 103.7 fL (80.0-100.0); MEAN PLATELET VOLUME 10.3 fL (7.4-10.4); MONOCYTES 6.5 % (2-11); RBC 3.25 10x6/uL (4.20-6.10); RDW 14.9 % (11.5-14.5)
[2019-05-28 18:41] LABS: PLATELET COUNT 215 10x3/uL (130-400)
[2019-05-28 18:47] LABS: APTT 34.4 SECONDS (22.8-39.4); INR 1.02 (0.85-1.17); PROTIME 13.4 SECONDS (11.6-15.0)
[2019-05-28 18:48] LABS: CALC OSMOLALITY 285 mosm/kg (275-300); CALCIUM 8.9 mg/dL (8.5-10.1); CARBON DIOXIDE 32.6 mmol/L (21.0-32.0); CHLORIDE - SERUM 101 mmol/L (98-107); GLUCOSE 98 mg/dL (74-106); POTASSIUM - SERUM 4.5 mmol/L (3.5-5.1); SODIUM 139 mmol/L (136-145); UREA NITROGEN 34 mg/dL (7-18); eGFR NON AFRICAN AMERICAN 34 mL/min (90-120)
[2019-05-28 19:03] LABS: ALBUMIN 2.9 g/dL (3.4-5.0); ALKALINE PHOSPHATASE 77 U/L (46-116); ALT (SGPT) 30 U/L (10-68); CREATINE KINASE 55 UL (21-232); PRO BNP 2134 pg/mL (0-450); PROTEIN - SERUM 6.7 g/dL (6.4-8.2)
[2019-05-28 19:04] LABS: TROPONIN-I < 0.017 ng/mL (0.000-0.060)
--- NOTE | 2019-05-28 22:00 | NUR ---
RECEIVED PT FROM ER VIA STRETCHER. A/O WITH NO SIGNS OF ACUTE DISTRESS. IV TO THE LT FOREARM WITH NO REDNESS OR SWELLING. NC @2. DID NOT GIVE EVENING MEDS DUE TO PT AMD FAMILY REPORTING THAT EVENING MEDS WERE GIVEN. GAVE FOOD TRAY AND WATER. DENIES NO OTHER NEEDS AT THIS TIME. CONTINUE PLAN OF CARE.
[2019-05-28 22:55] VITALS: BP 119/72; BMI 23.1
[2019-05-29] VITALS: BP 119/72
--- NOTE | 2019-05-29 03:48 | NUR ---
PULLED OUT IV WHILE SLEEPING. CATH INTACT. RESITED IV TO THE RT HAND. BED CHANGED. DENIES NO NEEDS AT THIS TIME. CONTINUE PLAN OF CARE.
[2019-05-29 04:00] VITALS: BP 110/59
[2019-05-29 06:32] LABS: BASOPHILS 0 % (0-2); EOSINOPHILS 0 % (0-7); HEMATOCRIT 30.7 % (42.0-54.0); HEMOGLOBIN 9.6 g/dL (13.5-17.5); IMMATURE GRANULOCYTES 0.8 % (0-5); LYMPHOCYTES 9.4 % (15-50); MCH 32.3 pg (26.0-34.0); MCHC 31.3 g/dL (31.0-37.0); MCV 103.4 fL (80.0-100.0); MEAN PLATELET VOLUME 10.6 fL (7.4-10.4); MONOCYTES 0.3 % (2-11); NEUTROPHILS 89.5 % (40-80); PLATELET COUNT 206 10x3/uL (130-400); RBC 2.97 10x6/uL (4.20-6.10); RDW 14.9 % (11.5-14.5); WBC 7.4 10x3/uL (4.8-10.8)
[2019-05-29 06:55] LABS: ANION GAP 9.4 mmol/L (8-16); CALCIUM 8.6 mg/dL (8.5-10.1); CARBON DIOXIDE 29.8 mmol/L (21.0-32.0); CREATININE - SERUM 2.1 mg/dL (0.6-1.3); PHOSPHOROUS 4.2 mg/dL (2.5-4.9); POTASSIUM - SERUM 4.2 mmol/L (3.5-5.1)
[2019-05-29 07:03] LABS: INR 1.05 (0.85-1.17); PROTIME 13.7 SECONDS (11.6-15.0)
[2019-05-29 08:12] VITALS: BMI 23.1
[2019-05-29 09:13] VITALS: BP 117/59
[2019-05-29 11:16] LABS: APPEARANCE CLEAR (CLEAR); BILIRUBIN NEGATIVE (NEGATIVE); COLOR YELLOW (YELLOW); GLUCOSE NEGATIVE (NEGATIVE); KETONE NEGATIVE (NEGATIVE); NITRITE NEGATIVE (NEGATIVE); PROTEIN NEGATIVE (NEGATIVE); UROBILINOGEN NORMAL (NORMAL)
--- NOTE | 2019-05-29 11:24 | NUR ---
RESTING IN BED, NO DISTRESS NOTED, IV INFUSING, CONT TO MONITOR RESP STATUS
[2019-05-29 13:38] VITALS: BP 128/65
[2019-05-29 17:12] VITALS: BP 168/84
[2019-05-29 20:00] VITALS: BP 144/70
--- NOTE | 2019-05-29 20:00 | NUR ---
SITTING UP IN BED TALKING TO DAUGHTER. ALERT AND ORIENTED X4. RESP EVEN AND NONLABORED. O2 @ 2L/NC. PROD COUGH WITH YELLOWISH/TURCIOS SPUTUM. SOB WITH MIN EXERTION. BRUISES NOTED TO BUE. DENIES PAIN. TANACROSS. EDEMA NOTED TO BLE. GEN WEAKNESS. NS @ 30 MLHR INFUSING IN RT HAND. TELEMETRY SHOWS SR WITH RATE OF 78. IGLESIA ALARM ON FOR PT SAFETY. SR ELEVATED X2. CL IN REACH.
[2019-05-29] MEDS ORDERED: PROSCAR5 MG PO (20:43)
[2019-05-29] MEDS ORDERED: FLOMAX0.4 MG PO (20:44)
[2019-05-29] MEDS ORDERED: BENICAR HCT 401 EAC1 PO (20:48)
[2019-05-30] VITALS: BP 115/52
--- NOTE | 2019-05-30 02:22 | NUR ---
LYING ON LT SIDE IN BED WITH EYES CLOSED. RESP EVEN AND NONLABORED. NO DISTRESS. SR ELEVATED X2. CL IN REACH. IGLESIA ALARM ON.
[2019-05-30 04:00] VITALS: BP 116/56
[2019-05-30 06:10] LABS: BASOPHILS 0 % (0-2); EOSINOPHILS 0 % (0-7); HEMATOCRIT 29.9 % (42.0-54.0); HEMOGLOBIN 9.3 g/dL (13.5-17.5); IMMATURE GRANULOCYTES 0.9 % (0-5); LYMPHOCYTES 4.2 % (15-50); MCH 33.1 pg (26.0-34.0); MCHC 31.1 g/dL (31.0-37.0); MONOCYTES 1.9 % (2-11); PLATELET COUNT 212 10x3/uL (130-400); RBC 2.81 10x6/uL (4.20-6.10)
--- NOTE | 2019-05-30 06:22 | NUR ---
SITTING UP ON SIDE OF BED USING URINAL.NO DISTRESS. SLEPT WELL. CL IN REACH.
[2019-05-30 06:25] LABS: MCV 106.4 fL (80.0-100.0); WBC 17.2 10x3/uL (4.8-10.8)
[2019-05-30 06:51] LABS: ANION GAP 9.3 mmol/L (8-16); CALCIUM 8.3 mg/dL (8.5-10.1); CARBON DIOXIDE 29.8 mmol/L (21.0-32.0); MAGNESIUM - SERUM 1.8 mg/dL (1.8-2.4); POTASSIUM - SERUM 4.1 mmol/L (3.5-5.1)
--- NOTE | 2019-05-30 09:20 | NUR ---
RESTING ON SIDE OF BED, NO DISTRESS NOTED, O2 PER NC, LUNGS WITH CRACKLES TO LEFT SIDE, CONT TO MONITOR
[2019-05-30 10:00] VITALS: BP 111/58
[2019-05-30 13:17] VITALS: BP 113/58
[2019-05-30 16:27] VITALS: BP 128/64
--- NOTE | 2019-05-30 19:55 | NUR ---
LYING ON LT SIDE IN BED. ALERT AND ORIENTED X4. SUQUAMISH. RESP IRREG, NONLABORED. O2 @ 2L/NC. ABD DISTENDED AND FIRM. BS ACTIVE X4 QUADS. C/O CONSTIPATION. REPORTS LAST BM FRIDAY. GIVEN PRUNE JUICE X2 AT THIS TIME. PASSING GAS. TELEMETRY SHOWS SR WITH RATE OF 60'S. BRUISES NOTED TO BUE. SALINE LOCK NOTED TO RT HAND. PROD COUGH WITH YELLOW SPUTUM. SR ELEVATED X2. CL IN REACH. IGLESIA ALARM ON FOR PT SAFETY.
[2019-05-30 20:00] VITALS: BP 117/56
[2019-05-31] VITALS: BP 117/49
--- NOTE | 2019-05-31 03:05 | NUR ---
LYING IN LT SIDE IN BED. HAS RESTED WELL SO FAR. NO DISTRESS. CL IN REACH.
[2019-05-31 04:00] VITALS: BP 108/46
[2019-05-31 05:10] LABS: BASOPHILS 0 % (0-2); EOSINOPHILS 0 % (0-7); HEMATOCRIT 29.1 % (42.0-54.0); HEMOGLOBIN 8.9 g/dL (13.5-17.5); LYMPHOCYTES 3.8 % (15-50); MCH 32.5 pg (26.0-34.0); MCHC 30.6 g/dL (31.0-37.0); MCV 106.2 fL (80.0-100.0); MEAN PLATELET VOLUME 10.9 fL (7.4-10.4); MONOCYTES 2.1 % (2-11); NEUTROPHILS 93.1 % (40-80); PLATELET COUNT 207 10x3/uL (130-400); RBC 2.74 10x6/uL (4.20-6.10); WBC 16.8 10x3/uL (4.8-10.8)
[2019-05-31 05:37] LABS: % SATURATION 57 % (15-55); IRON 94 ug/dl (35-150); TOTAL IRON BIND CAPACITY 163 ug/dl (260-445); UNSAT IRON BIND CAPACITY 69 ug/dl (150-375)
[2019-05-31 06:06] LABS: ANION GAP 8.4 mmol/L (8-16); CALCIUM 8.3 mg/dL (8.5-10.1); CARBON DIOXIDE 30.7 mmol/L (21.0-32.0); MAGNESIUM - SERUM 1.7 mg/dL (1.8-2.4); POTASSIUM - SERUM 4.1 mmol/L (3.5-5.1)
[2019-05-31 06:08] LABS: PHOSPHOROUS 2.4 mg/dL (2.5-4.9)
--- NOTE | 2019-05-31 08:00 | NUR ---
PATIENT ON LEFT SIDE RESTING. FALL PRECAUTIONS IN PLACE. CL IN REACH. WCTM
[2019-05-31 08:56] VITALS: BP 110/58
--- NOTE | 2019-05-31 11:12 | NUR ---
PATIENT LAYING ON LEFT SIDE. DENIES NEEDS. CL IN REACH. WCTM
[2019-05-31 12:18] VITALS: BP 118/69
[2019-05-31 16:34] VITALS: BP 125/66
[2019-05-31 20:00] VITALS: BP 161/71
--- NOTE | 2019-05-31 20:00 | NUR ---
ALERT RESTING QUITELY IN BED, DENIES PAIN OR NEEDS AT THIS TIME, SEE SHIFT ASSESSMENT, CALL LIGHT IN REACH
[2019-06-01 00:17] VITALS: BP 137/72
[2019-06-01 04:15] VITALS: BP 121/65
[2019-06-01 06:04] LABS: BASOPHILS 0.1 % (0-2); EOSINOPHILS 0 % (0-7); HEMATOCRIT 32.7 % (42.0-54.0); HEMOGLOBIN 10.2 g/dL (13.5-17.5); IMMATURE GRANULOCYTES 1.7 % (0-5); LYMPHOCYTES 3.6 % (15-50); MCH 32.9 pg (26.0-34.0); MCHC 31.2 g/dL (31.0-37.0); MCV 105.5 fL (80.0-100.0); MEAN PLATELET VOLUME 10.6 fL (7.4-10.4); MONOCYTES 3.2 % (2-11); NEUTROPHILS 91.4 % (40-80); PLATELET COUNT 206 10x3/uL (130-400); RDW 14.9 % (11.5-14.5); WBC 15.3 10x3/uL (4.8-10.8)
[2019-06-01 06:28] LABS: ANION GAP 7.9 mmol/L (8-16); CALCIUM 8.5 mg/dL (8.5-10.1); CARBON DIOXIDE 34.6 mmol/L (21.0-32.0); CREATININE - SERUM 1.7 mg/dL (0.6-1.3); MAGNESIUM - SERUM 2.1 mg/dL (1.8-2.4); PHOSPHOROUS 2.7 mg/dL (2.5-4.9); POTASSIUM - SERUM 4.5 mmol/L (3.5-5.1)
--- NOTE | 2019-06-01 07:47 | NUR ---
PT RESTING. RR EVEN AND UNLABORED. DENIES NEEDS OR PAIN AT THIS TIME. BED IN LOWEST POSITION. CALL LIGHT WITHIN REACH. WILL CONTINUE TO MONITOR.
[2019-06-01 09:23] VITALS: BP 120/63
--- NOTE | 2019-06-01 12:32 | NUR ---
IV REDRESSED PER PT REQUEST
--- NOTE | 2019-06-01 12:38 | NUR ---
NUTRITION F/U PT TOLERATING AHA DIET WITH 100% INTAKE RECENT MEALS. RECENT BM RECORDED. WILL CONTINUE TO PROVIDE DIET, MONITOR PO INTAKE. RD FOLLOWING
[2019-06-01 13:12] VITALS: BP 124/73
--- NOTE | 2019-06-01 13:34 | MORECARE ---
CASE MANAGEMENT DISCHARGE SUMMARY PATIENT: GABINO ESTRADA UNIT: [id number] ADM DATE: 05/28/19 AGE: 83 : 34 SEX: M ROOM/BED: D.2229 AUTHOR: GISSEL HOLLAND PHYSICIAN: REFERRING PHYSICIAN: JAH VERONICA MD DATE OF SERVICE: 06/01/19 Discharge Plan Patient Name: GABINO ESTRADA [facility] [facility] 1935 Planned Disposition: Home Anticipated Discharge Date: Discharge Date: Expected LOS: Initial Reviewer: [email or web address] Initial Review Date: 06/01/2019 Generated: 06/01/19 2:34 pm DCPIA - Discharge Planning Initial Assessment Updated by [email or web address]: Veronica Pierre on 06/01/19 1:31 pm * Is the patient Alert and Oriented? Yes * How many steps to enter\exit or inside your home? 4/0 * PCP Dr. Cespedes * Pharmacy Mail order or [facility] * Preadmission Environment Home Alone * ADLs Partial Dependent * Partial ADLs (Assistance needed) Ambulation * Equipment Nebulizer Other Oxygen Shower Chair Walker * Other Equipment Portable oxygen Trilogy * List name and contact numbers for known caregivers / representatives who currently or will assist patient after discharge: Pratik Estrada - [facility] - [phone] * Verbal permission to speak to the caregivers and representatives has been obtained from the patient. Yes * Community resources currently utilized None * Additional services required to return to the preadmission environment? No * Can the patient safely return to the preadmission environment? Yes * Has this patient been hospitalized within the prior 30 days at any hospital? No Patient Name: GABINO ESTRADA Page 42588 at 1334 All edits/amendments must be made on the electronic document DICTATION DATE: 06/01/19 1334 TRAFFIC MANAGER: JAG 06/01/19 1334 RPT#: [id number] DC DATE: STATUS: ADM IN [facility] [address] [place] [address] END OF REPORT
--- NOTE | 2019-06-01 13:43 | MORECARE ---
CASE MANAGEMENT DISCHARGE SUMMARY PATIENT: GABINO ESTRADA UNIT: [id number] ADM DATE: 05/28/19 AGE: 83 : 34 SEX: M ROOM/BED: D.2229 AUTHOR: GISSEL HOLLAND PHYSICIAN: REFERRING PHYSICIAN: JAH VERONICA MD DATE OF SERVICE: 06/01/19 Discharge Plan Patient Name: GABINO ESTRADA Facility: [facility]:[place] : 1935 Planned Disposition: Home Anticipated Discharge Date: Discharge Date: Expected LOS: Initial Reviewer: [email or web address] Initial Review Date: 06/01/2019 Generated: 06/01/19 2:42 pm Comments DCP- Discharge Planning Updated by [email or web address]: Veronica Pierre on 06/01/19 12:[address] Patient Name: GABINO ESTRADA Admission Status: ER Accout number: [id number] Admission Date: 05-28-2019 : 1935 Admission Diagnosis: Attending: IVAN Current LOS: 4 Anticipated DC Date: Planned Disposition: Home Primary Insurance: MEDICARE A & B Discharge Planning Comments: CM met with patient to complete initial dc planning assessment, he is alone in the room. CM educated patient on the CM role and verbal consent given by patient to complete assessment. Patient lives at home alone. He states his grand daughter and son live about a mile away. At discharge patient plans to return and feels this is a safe discharge. CM discussed availability of home health, rehab services, and medical equipment. Patient denied known discharge needs at this time. He has his Trilogy in the room from [facility] and they are in the room with him to reinstruct on how to use the Trilogy. He also tells me he has a vest he wears twice a day at home. States he is on oxygen 24/7 at 2 liters NC at home. He tells me he will discuss home health with his son and left me know, so I will check back on that. CM will continue to follow and will assist as needed with dc plans/needs. Router Operator: Veronica Pierre DCPIA - Discharge Planning Initial Assessment Updated by [email or web address]: Veronica Pierre on 06/01/19 1:31 pm * Is the patient Alert and Oriented? Yes * How many steps to enter\exit or inside your home? 4/0 * PCP Dr. Cespedes * Pharmacy Mail order or [facility] * Preadmission Environment Home Alone * ADLs Partial Dependent * Partial ADLs (Assistance needed) Ambulation * Equipment Nebulizer Other Oxygen Shower Chair Walker * Other Equipment Portable oxygen Trilogy * List name and contact numbers for known caregivers / representatives who currently or will assist patient after discharge: Pratik Estrada - [facility] - [phone] * Verbal permission to speak to the caregivers and representatives has been obtained from the patient. Yes * Community resources currently utilized None * Additional services required to return to the preadmission environment? No * Can the patient safely return to the preadmission environment? Yes * Has this patient been hospitalized within the prior 30 days at any hospital? No Coverage Notice Reviewer: [email or web address] Priti Pierre Notice Issued Date-Time: 06/01/2019 10:00 Notice Type: Patient Choice Letter Notice Delivered To: Patient Relationship to Patient: Self Paper Colorer Name: Delivery Method: HAND - Hand Delivered Sangeetha Days: Prior Verbal Notification: Recipient Understood Notice: Yes Recipient Signature: Yes Med Rec Note Co-signed by Attending: Coverage Notice Comment: ZBIGNIEW for [employer] Last DP export: 06/01/19 12:34 p Patient Name: GABINO ESTRADA Page [id number] at 1343 All edits/amendments must be made on the electronic document DICTATION DATE: 06/01/19 1342 MEAT WASHER: JAG 06/01/19 1342 RPT#: [id number] DC DATE: STATUS: ADM IN [facility] [address] [place] [address] END OF REPORT
[2019-06-01 17:20] VITALS: BP 124/71
--- NOTE | 2019-06-01 17:31 | NUR ---
I have reviewed this patient and I concur with the Shift Assessment completed by the Licensed Practical Nurse today this shift.
[2019-06-01 20:00] VITALS: BP 124/63
--- NOTE | 2019-06-01 20:00 | NUR ---
ALERT RESTING IN BED DENIES PAIN OR NEEDS AT THIS TIME, SEE SHIFT ASSESSMENT, CALL LIGHT IN REACH
[2019-06-02 00:39] VITALS: BP 142/81
[2019-06-02 04:00] VITALS: BP 116/65
[2019-06-02 05:19] LABS: BASOPHILS 0.1 % (0-2); EOSINOPHILS 0 % (0-7); HEMATOCRIT 33.5 % (42.0-54.0); HEMOGLOBIN 10.6 g/dL (13.5-17.5); LYMPHOCYTES 4.6 % (15-50); MCHC 31.6 g/dL (31.0-37.0); MCV 104.4 fL (80.0-100.0); NEUTROPHILS 89.3 % (40-80); PLATELET COUNT 210 10x3/uL (130-400); RBC 3.21 10x6/uL (4.20-6.10); RDW 14.5 % (11.5-14.5); WBC 12.7 10x3/uL (4.8-10.8)
[2019-06-02 05:45] LABS: ANION GAP 6.5 mmol/L (8-16); CREATININE - SERUM 1.5 mg/dL (0.6-1.3); PHOSPHOROUS 2.6 mg/dL (2.5-4.9); POTASSIUM - SERUM 4.5 mmol/L (3.5-5.1)
[2019-06-02 08:13] VITALS: BP 127/91
--- NOTE | 2019-06-02 10:35 | NUR ---
PT ALERT X 4. BREATH SOUNDS CLEAR BILAT, SHALLOW, 1.5L PER NC, PRODUCTIVE COUGH, YELLOW SPUTUM.ABDOMEN DISTENDED, FIRM AND TENDER. TELEMETRY INPLACE. IV TO RIGHT HAND SALINE LOCKED. BILAT FEET REDDENED AND SWOLLEN. PT REPORTING NO PAIN AT THIS TIME. PT HAD SMALL BM, COLLECTED SAMPLE FOR TESTING. BED LOW, CALL LIGHT IN REACH. NO OTHER NEEDS AT THIS TIME.
[2019-06-02 13:05] VITALS: BP 120/70
--- NOTE | 2019-06-02 13:32 | MORECARE ---
CASE MANAGEMENT DISCHARGE SUMMARY PATIENT: GABINO ESTRADA UNIT: [id number] ADM DATE: 05/28/19 AGE: 83 : 34 SEX: M ROOM/BED: D.2229 AUTHOR: GISSEL HOLLAND PHYSICIAN: REFERRING PHYSICIAN: JAH VERONICA MD DATE OF SERVICE: 06/02/19 Discharge Plan Patient Name: GABINO ESTRADA Facility: [facility]:[place] : 1935 Planned Disposition: Home Anticipated Discharge Date: Discharge Date: Expected LOS: Initial Reviewer: [id number] Initial Review Date: 06/01/2019 Generated: 06/02/19 2:32 pm Comments DCP- Discharge Planning Updated by [id number]: Veronica Pierre on 06/02/19 12:[address] I spoke with patient regarding inpatient rehab or home health. He states he has family that will be here tomorrow that will be staying with him. States he would like to talk to his family and let me know tomorrow. CM will continue to follow and assist with discharge planning/needs. DCP- Discharge Planning Updated by [id number]: Veronica Pierre on 06/01/19 12:[address] Patient Name: GABINO ESTRADA Admission Status: ER Accout number: [id number] Admission Date: 05-28-2019 : 1935 Admission Diagnosis: Attending: IVAN Current LOS: 4 Anticipated DC Date: Planned Disposition: Home Primary Insurance: MEDICARE A & B Discharge Planning Comments: CM met with patient to complete initial dc planning assessment, he is alone in the room. CM educated patient on the CM role and verbal consent given by patient to complete assessment. Patient lives at home alone. He states his grand daughter and son live about a mile away. At discharge patient plans to return and feels this is a safe discharge. CM discussed availability of home health, rehab services, and medical equipment. Patient denied known discharge needs at this time. He has his Trilogy in the room from [facility] and they are in the room with him to reinstruct on how to use the Trilogy. He also tells me he has a vest he wears twice a day at home. States he is on oxygen 24/7 at 2 liters NC at home. He tells me he will discuss home health with his son and left me know, so I will check back on that. CM will continue to follow and will assist as needed with dc plans/needs. Catering Truck Operator: Veroniac Ignacio DCPIA - Discharge Planning Initial Assessment Updated by [email or web address]: Veronica Pierre on 06/01/19 1:31 pm * Is the patient Alert and Oriented? Yes * How many steps to enter\exit or inside your home? 4/0 * PCP Dr. Cespedes * Pharmacy Mail order or [facility] * Preadmission Environment Home Alone * ADLs Partial Dependent * Partial ADLs (Assistance needed) Ambulation * Equipment Nebulizer Other Oxygen Shower Chair Walker * Other Equipment Portable oxygen Trilogy * List name and contact numbers for known caregivers / representatives who currently or will assist patient after discharge: Pratik Estrada - son - [phone] * Verbal permission to speak to the caregivers and representatives has been obtained from the patient. Yes * Community resources currently utilized None * Additional services required to return to the preadmission environment? No * Can the patient safely return to the preadmission environment? Yes * Has this patient been hospitalized within the prior 30 days at any hospital? No Coverage Notice Reviewer: [id number] - Veronica Pierre Notice Issued Date-Time: 06/01/2019 10:00 Notice Type: Patient Choice Letter Notice Delivered To: Patient Relationship to Patient: Self Quality Assurance Coordinator Name: Delivery Method: HAND - Hand Delivered Sangeetha Days: Prior Verbal Notification: Recipient Understood Notice: Yes Recipient Signature: Yes Med Rec Note Co-signed by Attending: Coverage Notice Comment: ZBIGNIEW for [employer] Last DP export: 06/01/19 12:43 p Patient Name: GABINO ESTRADA Page [phone] at 1332 All edits/amendments must be made on the electronic document DICTATION DATE: 06/02/19 1332 PYTHON DEVELOPER: JAG 06/02/19 1332 RPT#: [id number] DC DATE: STATUS: ADM IN [facility] [address] [place] [address] END OF REPORT
[2019-06-02 16:33] VITALS: BP 121/77
--- NOTE | 2019-06-02 19:00 | NUR ---
BEDSIDE REPORT RECEIVED AND CARE OF PT ASSUMED. PT LYING IN MID WELLS'S POSITION WATCHING TV. IV TO RIGHT HAND SALINE LOCKED. TELEMETRY IN PLACE AND READING SR AT THIS ASSESSMENT. TELEMETRY IN PLACE AND READING SR AT THIS ASSESSMENT. WILL MONITOR FOR NEEDS.
[2019-06-02 20:00] VITALS: BP 125/76
--- NOTE | 2019-06-02 21:25 | NUR ---
HS MEDICATIONS GIVEN. WILL CONTINUE TO MONITOR FOR NEEDS.
[2019-06-03] VITALS: BP 124/76
--- NOTE | 2019-06-03 | NUR ---
NPO STATUS BEGINS NOW. ALL FOOD AND DRINK REMOVED FROM BEDSIDE TABLE.
[2019-06-03 04:00] VITALS: BP 117/64
[2019-06-03 05:46] LABS: BASOPHILS 0 % (0-2); EOSINOPHILS 0 % (0-7); HEMATOCRIT 31.8 % (42.0-54.0); HEMOGLOBIN 10.2 g/dL (13.5-17.5); IMMATURE GRANULOCYTES 2.7 % (0-5); LYMPHOCYTES 4.7 % (15-50); MCH 33.2 pg (26.0-34.0); MCHC 32.1 g/dL (31.0-37.0); MCV 103.6 fL (80.0-100.0); MEAN PLATELET VOLUME 11.2 fL (7.4-10.4); MONOCYTES 3.1 % (2-11); NEUTROPHILS 89.5 % (40-80); PLATELET COUNT 204 10x3/uL (130-400); RBC 3.07 10x6/uL (4.20-6.10); RDW 14.5 % (11.5-14.5); WBC 13.2 10x3/uL (4.8-10.8)
[2019-06-03 06:05] LABS: ANION GAP 7.4 mmol/L (8-16); CALCIUM 8.1 mg/dL (8.5-10.1); CARBON DIOXIDE 33.1 mmol/L (21.0-32.0); CREATININE - SERUM 1.7 mg/dL (0.6-1.3); POTASSIUM - SERUM 4.5 mmol/L (3.5-5.1)
--- NOTE | 2019-06-03 06:55 | NUR ---
ALERT AND ORIENTED, RESTING IN BED WITH EYES OPEN. NO C/O PAIN. NO S/S OF ACUTE DISTRESS NOTED. UP WITH ASSIST. NPO. ON 1.5L O2, NC. IV TO RIGHT HAND, SL. SITE PATENT WITHOUT REDNESS OR SWELLING. ON TELEMETRY 58 SB. PATIENT SIGNED BED ALARM IVONNE, IN CHART. SCDS PRESENT. DENIES ANY NEEDS AT THIS TIME. CALL LIGHT IN REACH. WILL CONTINUE TO MONITOR.
[2019-06-03 07:52] VITALS: BP 123/63
--- NOTE | 2019-06-03 09:59 | NUR ---
PATIENT TAKEN BY IR FOR BRONCHOSCOPY AND BRONCHOAVEOLAR LAVAGE.
[2019-06-03 11:38] VITALS: BP 125/75
--- NOTE | 2019-06-03 11:39 | NUR ---
RECEIVED PATIENT FROM IR, BRONCHOSCOPY AND BRONCHOAVEOLAR LAVAGE. VITALS STABLE. PATIENT RESTING IN BED, DROWSY BUT AROUSES TO VOICE. DENIES ANY NEEDS AT THIS TIME. CALL LIGHT IN REACH. WILL CONTINUE TO MONITOR.
--- NOTE | 2019-06-03 12:30 | NUR ---
PT IS WITHOUT NEEDS.CALL LIGHT IN REACH
[2019-06-03 16:33] VITALS: BP 122/62
--- NOTE | 2019-06-03 16:36 | NUR ---
Rehab Note- Acute Inpatient Rehab prescreen order received. The patient is a good inpatient rehab candidate if in agreeance with [facility] Acute Inpatient Rehab and willing to participate in the required therapy. Will follow at this time. Thank you for this referral! Jackeline Houser RN Clinical Liaison, [facility] Rehab
[2019-06-03 20:00] VITALS: BP 122/60
[2019-06-04] VITALS: BP 143/79
--- NOTE | 2019-06-04 00:39 | NUR ---
ASSESSED AT THE BEGINNING OF THE SHIFT. PT IS ALERT AND ORIENTED, ABLE TO VERBALIZE NEEDS. HE IS UP WITH ASSIST TO THE BATHROOM BUT HE USES THE URINAL MOST OF THE TIME. HIS O2 IS AT 2 LITERS AND TELEMETRY SHOWS 64 SR. WE HAD TO MOVE HIS IV FROM THE RIGHT HAND TO THE LEFT WRIST DUE TO LEAKING AT THE SITE AND BURNING. AT THIS TIME HE IS ASLEEP WITH NO DISTRESS NOTED.
[2019-06-04 04:00] VITALS: BP 114/62
[2019-06-04 05:31] LABS: BASOPHILS 0.1 % (0-2); EOSINOPHILS 0 % (0-7); HEMATOCRIT 32.8 % (42.0-54.0); HEMOGLOBIN 10.3 g/dL (13.5-17.5); IMMATURE GRANULOCYTES 2.7 % (0-5); LYMPHOCYTES 3.5 % (15-50); MCHC 31.4 g/dL (31.0-37.0); MCV 105.1 fL (80.0-100.0); MEAN PLATELET VOLUME 11.3 fL (7.4-10.4); MONOCYTES 3.2 % (2-11); NEUTROPHILS 90.5 % (40-80); PLATELET COUNT 209 10x3/uL (130-400); RBC 3.12 10x6/uL (4.20-6.10); RDW 14.6 % (11.5-14.5)
[2019-06-04 05:38] LABS: ANION GAP 6.8 mmol/L (8-16); CARBON DIOXIDE 33.4 mmol/L (21.0-32.0); CREATININE - SERUM 1.9 mg/dL (0.6-1.3); POTASSIUM - SERUM 4.2 mmol/L (3.5-5.1)
--- NOTE | 2019-06-04 06:45 | NUR ---
ALERT AND ORIENTED, RESTING IN BED. NO C/O PAIN. NO S/S OF ACUTE DISTRESS NOTED. DENIES ANY NEEDS AT THIS TIME. CALL LIGHT IN REACH. WILL CONTINUE TO MONITOR.
[2019-06-04 09:00] VITALS: BP 125/74
[2019-06-04 12:10] LABS: FUNGUS STAIN Final report (())
[2019-06-04 13:16] VITALS: BP 137/74
--- NOTE | 2019-06-04 14:00 | MORECARE ---
CASE MANAGEMENT DISCHARGE SUMMARY PATIENT: GABINO ESTRADA UNIT: [id number] ADM DATE: 05/28/19 AGE: 83 : 34 SEX: M ROOM/BED: D.2229 AUTHOR: GISESL HOLLAND PHYSICIAN: REFERRING PHYSICIAN: JAH VERONICA MD DATE OF SERVICE: 06/04/19 Discharge Plan Patient Name: GABINO ESTRADA Facility: [facility]:[place] : 1935 Planned Disposition: Home Anticipated Discharge Date: Discharge Date: Expected LOS: Initial Reviewer: [email or web address] Initial Review Date: 06/01/2019 Generated: 06/04/19 2:59 pm Comments DCP- Discharge Planning Updated by [id number]: Veronica Pierre on 06/04/19 12:[address] I met with the patient and explained the doctor would like him to have rehab prior to discharging home, ZBIGNIEW for Inpatient rehab at [facility] signed. CM will continue to follow and assist with discharge planning/needs. DCP- Discharge Planning Updated by [email or web address]: Veronica Pierre on 06/02/19 12:[address] I spoke with patient regarding inpatient rehab or home health. He states he has family that will be here tomorrow that will be staying with him. States he would like to talk to his family and let me know tomorrow. CM will continue to follow and assist with discharge planning/needs. DCP- Discharge Planning Updated by [email or web address]: Veronica Pierre on 06/01/19 12:[address] Patient Name: GABINO ESTRADA Admission Status: ER Accout number: [id number] Admission Date: 05-28-2019 : 1935 Admission Diagnosis: Attending: IVAN Current LOS: 4 Anticipated DC Date: Planned Disposition: Home Primary Insurance: MEDICARE A & B Discharge Planning Comments: CM met with patient to complete initial dc planning assessment, he is alone in the room. CM educated patient on the CM role and verbal consent given by patient to complete assessment. Patient lives at home alone. He states his grand daughter and son live about a mile away. At discharge patient plans to return and feels this is a safe discharge. CM discussed availability of home health, rehab services, and medical equipment. Patient denied known discharge needs at this time. He has his Trilogy in the room from [facility] and they are in the room with him to reinstruct on how to use the Trilogy. He also tells me he has a vest he wears twice a day at home. States he is on oxygen 24/7 at 2 liters NC at home. He tells me he will discuss home health with his son and left me know, so I will check back on that. CM will continue to follow and will assist as needed with dc plans/needs. Vice President Process: Veronica Pierre DCPIA - Discharge Planning Initial Assessment Updated by [id number]: Veronica Pierre on 06/01/19 1:31 pm * Is the patient Alert and Oriented? Yes * How many steps to enter\exit or inside your home? 4/0 * PCP Dr. Cespedes * Pharmacy Mail order or [facility] * Preadmission Environment Home Alone * ADLs Partial Dependent * Partial ADLs (Assistance needed) Ambulation * Equipment Nebulizer Other Oxygen Shower Chair Walker * Other Equipment Portable oxygen Trilogy * List name and contact numbers for known caregivers / representatives who currently or will assist patient after discharge: Pratik Estrada - [facility] - [phone] * Verbal permission to speak to the caregivers and representatives has been obtained from the patient. Yes * Community resources currently utilized None * Additional services required to return to the preadmission environment? No * Can the patient safely return to the preadmission environment? Yes * Has this patient been hospitalized within the prior 30 days at any hospital? No Coverage Notice Reviewer: [id number] Priti Pierre Notice Issued Date-Time: 06/01/2019 10:00 Notice Type: Patient Choice Letter Notice Delivered To: Patient Relationship to Patient: Self Manager Of International Name: Delivery Method: HAND - Hand Delivered Sangeetha Days: Prior Verbal Notification: Recipient Understood Notice: Yes Recipient Signature: Yes Med Rec Note Co-signed by Attending: Coverage Notice Comment: ZBIGNIEW for [facility] Reviewer: [id number] Priti Pierre Notice Issued Date-Time: 06/04/2019 13:45 Notice Type: Patient Choice Letter Notice Delivered To: Patient Relationship to Patient: Self Manager Of International Name: Delivery Method: HAND - Hand Delivered Sangeetha Days: Prior Verbal Notification: Recipient Understood Notice: Yes Recipient Signature: Yes Med Rec Note Co-signed by Attending: Coverage Notice Comment: ZBIGNIEW FOR [facility] INPATIENT REHAB Last DP export: 06/02/19 12:32 p Patient Name: GABINO ESTRADA Page [id number] at 1400 All edits/amendments must be made on the electronic document DICTATION DATE: 06/04/19 135 BOTTOM BRUSHER: JAG 06/04/19 1359 RPT#: [id number] DC DATE: STATUS: ADM IN [facility] [address] [place] [address] END OF REPORT
[2019-06-04 14:16] VITALS: Ht 188 cm; Wt 81.6 kg
--- NOTE | 2019-06-04 15:31 | NUR ---
I have reviewed this patient and I concur with the Shift Assessment completed by the Licensed Practical Nurse today this shift.
[2019-06-04 16:08] LABS: ACID FAST SMEAR Negative (()); AFB SPECIMEN PROCESSING Concentration (())
[2019-06-04 17:23] VITALS: BP 131/82
[2019-06-04 20:00] VITALS: BP 138/71
[2019-06-05] VITALS: BP 109/67
[2019-06-05 04:00] VITALS: BP 115/54
[2019-06-05 06:10] LABS: BASOPHILS 0 % (0-2); EOSINOPHILS 0 % (0-7); HEMOGLOBIN 10.5 g/dL (13.5-17.5); IMMATURE GRANULOCYTES 2.4 % (0-5); LYMPHOCYTES 4.5 % (15-50); MCH 33.2 pg (26.0-34.0); MCHC 31.8 g/dL (31.0-37.0); MCV 104.4 fL (80.0-100.0); MEAN PLATELET VOLUME 11.7 fL (7.4-10.4); MONOCYTES 2.5 % (2-11); NEUTROPHILS 90.6 % (40-80); PLATELET COUNT 191 10x3/uL (130-400); RBC 3.16 10x6/uL (4.20-6.10); RDW 14.7 % (11.5-14.5); WBC 14.3 10x3/uL (4.8-10.8)
[2019-06-05 06:37] LABS: ANION GAP 10.2 mmol/L (8-16); CALCIUM 8.1 mg/dL (8.5-10.1); CARBON DIOXIDE 32.1 mmol/L (21.0-32.0); CREATININE - SERUM 1.7 mg/dL (0.6-1.3); POTASSIUM - SERUM 4.3 mmol/L (3.5-5.1)
--- NOTE | 2019-06-05 07:48 | NUR ---
PT RESTING IN BED WITH EYES CLOSED, NO S/S OF DISTRESS CURRENTLY NOTED. IV LOCATED TO LEFT WRIST RUNNING NS @ KVO. CURRENTLY RCVING 2L VIA NC. WILL CONT TO MONITOR.
[2019-06-05 09:33] VITALS: BP 127/79
[2019-06-05 13:47] VITALS: BP 125/78
--- NOTE | 2019-06-05 16:34 | NUR ---
SITTING UP AT BEDSIDE, NO S/S OF DISTRESS AT THIS TIME, WILL CONT TO MONITOR.
[2019-06-05 17:35] VITALS: BP 120/64
[2019-06-05 20:00] VITALS: BP 113/64
--- NOTE | 2019-06-05 20:00 | NUR ---
ALERT RESTING IN BED, DENIES PAIN OR NEEDS AT THIS TIME, SEE SHIFT ASSESSMENT, CALL LIGHT IN REACH
[2019-06-06] VITALS: BP 110/65
[2019-06-06 04:00] VITALS: BP 127/55
[2019-06-06 05:41] LABS: BASOPHILS 0.1 % (0-2); EOSINOPHILS 0 % (0-7); HEMATOCRIT 31.2 % (42.0-54.0); HEMOGLOBIN 9.9 g/dL (13.5-17.5); LYMPHOCYTES 3.8 % (15-50); MCHC 31.7 g/dL (31.0-37.0); MEAN PLATELET VOLUME 11.4 fL (7.4-10.4); MONOCYTES 2.6 % (2-11); NEUTROPHILS 90.5 % (40-80); PLATELET COUNT 183 10x3/uL (130-400); RDW 14.4 % (11.5-14.5); WBC 14.3 10x3/uL (4.8-10.8)
[2019-06-06 06:18] LABS: ANION GAP 10.4 mmol/L (8-16); CALCIUM 7.7 mg/dL (8.5-10.1); CARBON DIOXIDE 30.6 mmol/L (21.0-32.0); CREATININE - SERUM 1.8 mg/dL (0.6-1.3)
--- NOTE | 2019-06-06 08:50 | NUR ---
SITTING ON SIDE OF BED, NO DISTRESS NOTED, O2 PER NC AT 2, CONT TO HAVE PROD COUGH, TELE IN PLACE
[2019-06-06 08:53] VITALS: BP 133/67
[2019-06-06 12:56] VITALS: BP 136/73
[2019-06-06 17:02] VITALS: BP 125/72
[2019-06-06 20:00] VITALS: BP 113/66
--- NOTE | 2019-06-06 20:00 | NUR ---
ALERT RESTING IN BED DENIES PAIN OR NEEDS AT THIS TIME, CONTINUES TO HAVE PRODUCTIVE COUGH WITH TURCIOS COLORED SPUTUM, SEE SHIFT ASSESSMENT, CALL LIGHT IN REACH
[2019-06-07] VITALS: BP 122/65
[2019-06-07 04:00] VITALS: BP 132/82
[2019-06-07 05:22] LABS: BASOPHILS 0.1 % (0-2); EOSINOPHILS 0 % (0-7); HEMATOCRIT 31.7 % (42.0-54.0); HEMOGLOBIN 9.8 g/dL (13.5-17.5); IMMATURE GRANULOCYTES 4.3 % (0-5); LYMPHOCYTES 3.6 % (15-50); MCH 32.7 pg (26.0-34.0); MCHC 30.9 g/dL (31.0-37.0); MCV 105.7 fL (80.0-100.0); MEAN PLATELET VOLUME 11.5 fL (7.4-10.4); PLATELET COUNT 177 10x3/uL (130-400); RDW 14.5 % (11.5-14.5); WBC 14.9 10x3/uL (4.8-10.8)
[2019-06-07 05:37] LABS: ANION GAP 6.7 mmol/L (8-16); CALCIUM 7.8 mg/dL (8.5-10.1); CARBON DIOXIDE 36.1 mmol/L (21.0-32.0); CREATININE - SERUM 1.6 mg/dL (0.6-1.3)
[2019-06-07 05:39] LABS: POTASSIUM - SERUM 4.8 mmol/L (3.5-5.1)
[2019-06-07 07:58] VITALS: BP 107/53
--- NOTE | 2019-06-07 08:00 | NUR ---
ASSESSMENT PER FLOW SHEET. PT IS WITHOUT DISTRESS. CALL LIGHT IN REACH
[2019-06-07 12:09] LABS: SPE - A/G RATIO 1.2 (0.7-1.7); SPE - ALPHA-1 GLOBULIN 0.2 g/dL (0.0-0.4); SPE - ALPHA-2 GLOBULIN 0.8 g/dL (0.4-1.0); SPE - BETA GLOBULIN 0.8 g/dL (0.7-1.3); SPE - GAMMA GLOBULIN 0.8 g/dL (0.4-1.8); SPE - M-SPIKE Not Observed g/dL (Not Observed); SPE - TOTAL PROTEIN 5.6 g/dL (6.0-8.5)
--- NOTE | 2019-06-07 14:04 | NUR ---
Nutrition follow-up: Diet: low sodium PO intake 75-100% of meals Labs reviewed +BM Wt: 180# RDN following.
[2019-06-07 17:33] VITALS: BP 133/72
--- NOTE | 2019-06-07 20:35 | NUR ---
LYING IN BED TALKING TO FAMILY MEMBERS. ALERT AND ORIENTED X4. RESP IRREG. SOB WITH MIN EXERTION. O2 @2L/NC. PROD COUGH WITH YELLOW SPUTUM. EDEMA NOTED TO BLE. TELEMETRY SHOWS SR WITH RATE OF 85. GEN WEAKNESS NOTED. GAIT IS UNSTEADY BUT HAS SIGNED IGLESIA WAIVER. SALINE LOCK TO LT FOREARM. DENIES PAIN. SR ELEVATED X2. CL IN REACH.
[2019-06-07 21:11] VITALS: BP 121/70
[2019-06-08 01:24] VITALS: BP 120/76
--- NOTE | 2019-06-08 02:28 | NUR ---
RESTING QUIETLY WITH EYES CLOSED. RESP EVEN AND NONLABORED. NO DISTRESS. CL IN REACH. HAS RESTED WELL TONIGHT SO FAR.
[2019-06-08 04:56] VITALS: BP 112/55
[2019-06-08 05:27] LABS: BASOPHILS 0.1 % (0-2); EOSINOPHILS 0 % (0-7); HEMATOCRIT 32.6 % (42.0-54.0); HEMOGLOBIN 10.1 g/dL (13.5-17.5); IMMATURE GRANULOCYTES 3.6 % (0-5); LYMPHOCYTES 3.2 % (15-50); MCH 33.3 pg (26.0-34.0); MCV 107.6 fL (80.0-100.0); MEAN PLATELET VOLUME 11.5 fL (7.4-10.4); MONOCYTES 4.4 % (2-11); NEUTROPHILS 88.7 % (40-80); PLATELET COUNT 198 10x3/uL (130-400); RBC 3.03 10x6/uL (4.20-6.10); WBC 16.5 10x3/uL (4.8-10.8)
[2019-06-08 05:30] LABS: ANION GAP 9.3 mmol/L (8-16); CALCIUM 7.6 mg/dL (8.5-10.1); CARBON DIOXIDE 33.7 mmol/L (21.0-32.0); CREATININE - SERUM 1.7 mg/dL (0.6-1.3); MAGNESIUM - SERUM 1.8 mg/dL (1.8-2.4)
[2019-06-08 09:16] VITALS: BP 145/81
[2019-06-08] MEDS ORDERED: MERREM 1 GM/NS 11 G1 IV (09:35)
[2019-06-08] MEDS ORDERED: PULMICORT0.5 MG/21 UPD (09:35)
[2019-06-08] MEDS ORDERED: MUCOMYST 20% UPD (09:35)
[2019-06-08] MEDS ORDERED: Retacrit SC (09:35)
[2019-06-08] MEDS ORDERED: BROVANA15 MCG/2 M INH (09:35)
[2019-06-08] MEDS ORDERED: ALBUTEROL2.5 MG/3 M UPD (09:35)
[2019-06-08] MEDS ORDERED: IPRAT-ALBUT 0.5-3 ML UPD (09:35)
[2019-06-08] MEDS ORDERED: SOLU-MEDRO40 MG/1 M1 IV (09:35)
[2019-06-08] MEDS ORDERED: FLORAJEN3 CAPS460 MG PO (09:35)
[2019-06-08] MEDS ORDERED: COLACE100 MG PO (09:35)
[2019-06-08 11:10] LABS: FUNGUS CULTURE RESULT 1 Candida albicans (()); FUNGUS MYCOLOGY CULTURE Preliminary report (())
[2019-06-08 13:29] VITALS: BP 132/76
--- NOTE | 2019-06-08 16:17 | NUR ---
CALL TO JANEL ESTRADA. HE IS INFORMED OF PT TRANSFER TO REHAB UNIT, ROOM 1214.
--- NOTE | 2019-06-10 08:51 | MORECARE ---
CASE MANAGEMENT DISCHARGE SUMMARY PATIENT: GABINO ESTRADA UNIT: [id number] ADM DATE: 05/28/19 AGE: 83 : 34 SEX: M ROOM/BED: D.2229 AUTHOR: GISSEL HOLLAND PHYSICIAN: REFERRING PHYSICIAN: JAH VERONICA MD DATE OF SERVICE: 06/10/19 Discharge Plan Patient Name: GABINO ESTRADA Facility: [facility]:[place] : 1935 Planned Disposition: Home Anticipated Discharge Date: Discharge Date: 06/08/2019 Expected LOS: 0 Initial Reviewer: [email or web address] Initial Review Date: 06/01/2019 Generated: 06/10/19 9:51 am Comments DCP- Discharge Planning Updated by [id number]: Veronica Pierre on 06/04/19 12:[address] I met with the patient and explained the doctor would like him to have rehab prior to discharging home, ZBIGNIEW for Inpatient rehab at [facility] signed. CM will continue to follow and assist with discharge planning/needs. DCP- Discharge Planning Updated by [id number]: Veronica Pierre on 06/02/19 12:[address] I spoke with patient regarding inpatient rehab or home health. He states he has family that will be here tomorrow that will be staying with him. States he would like to talk to his family and let me know tomorrow. CM will continue to follow and assist with discharge planning/needs. DCP- Discharge Planning Updated by [email or web address]: Veronica Pierre on 06/01/19 12:[address] Patient Name: GABINO ESTRADA Admission Status: ER Accout number: [id number] Admission Date: 05-28-2019 : 1935 Admission Diagnosis: Attending: IVAN Current LOS: 4 Anticipated DC Date: Planned Disposition: Home Primary Insurance: MEDICARE A & B Discharge Planning Comments: CM met with patient to complete initial dc planning assessment, he is alone in the room. CM educated patient on the CM role and verbal consent given by patient to complete assessment. Patient lives at home alone. He states his grand daughter and son live about a mile away. At discharge patient plans to return and feels this is a safe discharge. CM discussed availability of home health, rehab services, and medical equipment. Patient denied known discharge needs at this time. He has his Trilogy in the room from [facility] and they are in the room with him to reinstruct on how to use the Trilogy. He also tells me he has a vest he wears twice a day at home. States he is on oxygen 24/7 at 2 liters NC at home. He tells me he will discuss home health with his son and left me know, so I will check back on that. CM will continue to follow and will assist as needed with dc plans/needs. Forklift Material Handler: Veronica Pierre DCPIA - Discharge Planning Initial Assessment Updated by [id number]: Veronica Pierre on 06/01/19 1:31 pm * Is the patient Alert and Oriented? Yes * How many steps to enter\exit or inside your home? 4/0 * PCP Dr. Cespedes * Pharmacy Mail order or [facility] * Preadmission Environment Home Alone * ADLs Partial Dependent * Partial ADLs (Assistance needed) Ambulation * Equipment Nebulizer Other Oxygen Shower Chair Walker * Other Equipment Portable oxygen Trilogy * List name and contact numbers for known caregivers / representatives who currently or will assist patient after discharge: Pratik Estrada - [place] - [phone] * Verbal permission to speak to the caregivers and representatives has been obtained from the patient. Yes * Community resources currently utilized None * Additional services required to return to the preadmission environment? No * Can the patient safely return to the preadmission environment? Yes * Has this patient been hospitalized within the prior 30 days at any hospital? No Coverage Notice Reviewer: [id number] Priti Pierre Notice Issued Date-Time: 06/01/2019 10:00 Notice Type: Patient Choice Letter Notice Delivered To: Patient Relationship to Patient: Self Imaging Scheduler Name: Delivery Method: HAND - Hand Delivered Sangeetha Days: Prior Verbal Notification: Recipient Understood Notice: Yes Recipient Signature: Yes Med Rec Note Co-signed by Attending: Coverage Notice Comment: ZBIGNIEW for [facility] Reviewer: [id number] Priti Pierre Notice Issued Date-Time: 06/04/2019 13:45 Notice Type: Patient Choice Letter Notice Delivered To: Patient Relationship to Patient: Self Imaging Scheduler Name: Delivery Method: HAND - Hand Delivered Sangeetha Days: Prior Verbal Notification: Recipient Understood Notice: Yes Recipient Signature: Yes Med Rec Note Co-signed by Attending: Coverage Notice Comment: ZBIGNIEW FOR [facility] INPATIENT REHAB Reviewer: [id number] Priti Pierre Notice Issued Date-Time: 06/08/2019 11:19 Notice Type: IM Discharge Notice Notice Delivered To: Patient Relationship to Patient: Self Imaging Scheduler Name: Delivery Method: HAND - Hand Delivered Sangeetha Days: Prior Verbal Notification: Recipient Understood Notice: Yes Recipient Signature: Yes Med Rec Note Co-signed by Attending: Coverage Notice Comment: IMM explained, signed, given, copy placed in MR Last DP export: 06/04/19 1:00 p Patient Name: GABINO ESTRADA Page [id number] at 0851 All edits/amendments must be made on the electronic document DICTATION DATE: 06/10/19850 BOUNTY HUNTER: JAG 06/10/1952 RPT#: [id number] DC DATE:06/08/19 STATUS: DIS IN [facility] [address] [place] [address] END OF REPORT
[2019-06-11 17:08] LABS: FUNGUS CULTURE RESULT 1 Candida albicans (())
[2019-06-13 18:07] LABS: AEROBE ID Final report (()); RESULT 1 Pantoea species (())
[2019-06-20] MEDS ORDERED: TOBI 300 M300 MG/5 M INH (01:02)
== END 2019-06-08 16:18 | DRG 177 ==
LOC: D.ER 18:12 → D.MS 20:05
PROVIDERS: Family Medicine; Internal Medicine Hematology & Oncology; Internal Medicine Nephrology; Internal Medicine Pulmonary Disease; ADMIT Family Medicine; ATTEND Family Medicine
PROC: 0B9F8ZX Drainage of Right Lower Lung Lobe, Via Natural or Artificial Opening Endoscopic, Diagnostic (ICD-10-PCS; 2019-06-03)
PROC: 0B9J8ZX Drainage of Left Lower Lung Lobe, Via Natural or Artificial Opening Endoscopic, Diagnostic (ICD-10-PCS; principal; 2019-06-03 10:00)
DX: J15.6 Pneumonia due to other Gram-negative bacteria (principal); J96.21 Acute and chronic respiratory failure with hypoxia; J44.0 Chronic obstructive pulmonary disease with (acute) lower respiratory infection; J44.1 Chronic obstructive pulmonary disease with (acute) exacerbation; J84.9 Interstitial pulmonary disease, unspecified; N17.9 Acute kidney failure, unspecified; J96.12 Chronic respiratory failure with hypercapnia; J20.9 Acute bronchitis, unspecified; E78.5 Hyperlipidemia, unspecified; I25.10 Atherosclerotic heart disease of native coronary artery without angina pectoris; I12.9 Hypertensive chronic kidney disease with stage 1 through stage 4 chronic kidney disease, or unspecified chronic kidney disease; N18.9 Chronic kidney disease, unspecified; N40.0 Benign prostatic hyperplasia without lower urinary tract symptoms; M19.90 Unspecified osteoarthritis, unspecified site; G62.9 Polyneuropathy, unspecified; D53.9 Nutritional anemia, unspecified

== ENCOUNTER 2019-06-29 16:56 | Inpatient (IN) | payer MEDICARE, OTHER ==
[~2019-06-29] VITALS: Ht 188 cm; Wt 81.2 kg
[~2019-06-29 16:56] MED LIST changes: +ALBUTEROL2.5 MG/3 M UPD; +BENICAR HCT 401 EAC1 PO; +BROVANA15 MCG/2 M INH; +COLACE100 MG PO; +FLOMAX0.4 MG PO; +FLORAJEN3 CAPS460 MG PO; +MERREM 1 GM/NS 11 G1 IV; +MUCOMYST 20% UPD; +PROSCAR5 MG PO; +PULMICORT0.5 MG/21 UPD; +Retacrit SC; +SOLU-MEDRO40 MG/1 M1 IV; +TOBI 300 M300 MG/5 M INH
--- NOTE | 2019-06-29 18:40 | NUR ---
PT RESTING IN BE WITH EYES OPEN CALL LIGHT IN REACH NO PROBLEMS RADHA NEGRON
--- NOTE | 2019-06-29 18:52 | NUR ---
BEDSIDE REPORT COMPLETE. RECEIVED PT LYING IN BED ON LEFT SIDE EYES CLOSED RESTING. RR EVEN AND UNLABORED. CL IN REACH. FALL PRECAUTIONS IN PLACE. WILL CONTINUE TO MONITOR
[2019-06-29 21:50] VITALS: BP 119/67
--- NOTE | 2019-06-29 23:19 | NUR ---
PT LYING IN BED ON LEFT SIDE EYES CLOSED RESTING. RR EVEN AND UNLABORED. CL IN REACH
[2019-06-29 23:29] VITALS: BP 119/67
--- NOTE | 2019-06-30 01:59 | NUR ---
PT LYING IN BED ON LEFT SIDE EYES CLOSED RESTING. RR EVEN AND UNLABORED. CONTINUES ON 5L VIA HF NC. CL IN REACH
[2019-06-30 07:51] LABS: ANION GAP 11.6 mmol/L (8-16); CALCIUM 8.1 mg/dL (8.5-10.1); CARBON DIOXIDE 31.3 mmol/L (21.0-32.0); CREATININE - SERUM 2.5 mg/dL (0.6-1.3)
[2019-06-30 07:53] LABS: POTASSIUM - SERUM 4.9 mmol/L (3.5-5.1)
[2019-06-30 08:39] LABS: HEMOGLOBIN 9.6 g/dL (13.5-17.5); MCH 33.6 pg (26.0-34.0); MCV 108.4 fL (80.0-100.0); MEAN PLATELET VOLUME 11.3 fL (7.4-10.4); PLATELET COUNT 205 10x3/uL (130-400); RBC 2.86 10x6/uL (4.20-6.10); RDW 15.1 % (11.5-14.5); WBC 5.3 10x3/uL (4.8-10.8)
[2019-06-30 08:44] VITALS: BP 102/52
--- NOTE | 2019-06-30 09:57 | NUR ---
PATIENT IS ALERT WITH SOME CONFUSION NOTED. OCCUPATIONAL THERAPIST WORKING WITH PATIENT. DUE TO SAFTY ISSUE BED BATH GIVEN. PATIENT IS A TOTAL ASST OF TWO. WILL CONTINUE WITH PLAN OF CARE FOR THIS PATIENT.
[2019-06-30 11:07] LABS: LYMPHOCYTES 13 % (15-50); MONOCYTES 5 % (2-11); NEUTROPHILS 78 % (40-80); PLATELET ESTIMATE NORMAL
[2019-06-30 11:08] LABS: ANISOCYTOSIS OCC; ROULEAUX OCC
[2019-06-30 14:17] VITALS: Ht 188 cm; Wt 81.2 kg
--- NOTE | 2019-06-30 19:25 | NUR ---
AWAKE AND ALERT. RESTING IN BED. O2/5L PER HIGH FLOW. CONFUSED AT TIMES. GONZALES PATENT. NO ACUTE DISTRESS NOTED. CALL LIGHT IN REACH.
[2019-06-30 21:41] VITALS: BP 122/56
--- NOTE | 2019-07-01 01:34 | NUR ---
RESTING IN BED WITH RESPIRATIONS UNLABORED. NO DISTRESS NOTED.
--- NOTE | 2019-07-01 03:16 | NUR ---
CONTINUES SLEEPING WITH RESPIRATIONS UNLABORED. NO DISTRESS NOTED.
--- NOTE | 2019-07-01 05:28 | NUR ---
QUIET HOURS. NO ACUTE CHANGES IN CONDITION THIS SHIFT. GONZALES PATENT. O2/5L ON PER HIGH FLOW. NO DISTRESS NOTED.
[2019-07-01 08:12] VITALS: BP 116/60
--- NOTE | 2019-07-01 09:39 | NUR ---
PATIENT IS ALERT. HARD OF HEARING. IN REHAB ROOM WORKING WITH PHYSICAL THERAPIST. DENIES ANY PAIN/DISC AT THIS TIME. WILL CONTINUE WITH PLAN OF CARE
--- NOTE | 2019-07-01 12:38 | NUR ---
PATIENT SITTING UP IN WHEELCHAIR AT BEDSIDE TO EAT LUNCH. CHAIR ALARM ON. CALL LIGHT WITHIN REACH.
--- NOTE | 2019-07-01 16:11 | RHP ---
PATIENT: GABINO ESTRADA MEDICAL RECORD: [id number] ACCOUNT: [id number] LOCATION:[facility] : [birth year] ADMISSION DATE: 06/29/19 REHABILITATION HISTORY AND PHYSICAL EXAMINATION POST ADMISSION PHYSICIAN EXAMINATION POST ADMISSION PHYSICAL EXAMINATION AND HISTORY AND PHYSICAL DATE OF ADMISSION: 06/29/2019. ADMITTING DIAGNOSIS: Nephrologic disorder. HISTORY OF PRESENT ILLNESS: The patient is a patient of Dr. STEPHENS, is 83 years of age with history of hypertension, hyperlipidemia, COPD, mycobacterium pneumonia, pulmonary nodules, BPH, DVTs, coronary artery disease. He was transferred to the [facility] hospital from inpatient rehab on June 19 with complaints of increasing shortness of breath, productive cough, and congestion. The patient was seen and evaluated there. He was transferred to the ICU, placed on BiPAP. He was lethargic. He had a bronchoscopy on June 03, which showed bronchogenic changes, thick charles yellow secretions noted in the right lower lobe, left lower lobe, and left upper lobe. He had a bronchoalveolar lavage, which showed pseudomonas. He has been on inhaled tobramycin since then. He has got wszxh-by-egiuofn kidney disease, electrolyte replacement. He has got some elevated pulmonary systolic pressures. The patient continues to be diuresed with monitoring of his creatinine. Nephrology has seen him throughout his stay. His baseline is 1.8. The patient has some metabolic alkalosis, but is improved, but is chronic from COPD. The patient is on BiPAP at bedtime and p.r.n. They are titrating his O2 to keep his sat above 92%. He is on tobramycin nebs twice a day, prednisone, Pulmicort and Brovana, Xopenex, Merrem for the next 7 days, and Xopenex updrafts as needed. He has also been using a flutter valve therapy, inspiratory spirometry, and Mucomyst nebs. The patient clearly has many barriers to his discharge home this time requiring intensive inpatient therapy to get back to his prior level of functioning and return home to his . He lives in assisted living. Prior to this illness, he was independent with ADLs and mobility. He is currently max assist with ADLs. Has proximal muscle weakness. Max assist with ambulation. He is having some confusion at times, so will benefit from cognitive therapy from speech therapy also. Comorbidities include oggfr-cl-jovvrqx respiratory failure. He has got COPD, chronic kidney disease, BPH, peripheral neuropathy, macrocytic anemia, DVT, bronchiectasis, constipation, coronary artery disease, noted pseudomonas infection, hemoptysis, and osteoarthritis. PAST MEDICAL HISTORY: Significant for glaucoma, history of coronary artery disease, tick fever, COPD, hemoptysis, mycobacterium infection, pseudomonas infection, acid reflux, arthritis, prostate problems. PAST SURGICAL HISTORY: Includes appendectomy, coronary artery stent placement, bronchoscopy, colonoscopy. ALLERGIES: IBUPROFEN. CURRENT MEDICATIONS: Include erythropoietin 10,000 units once weekly. He is on Floranex daily. He is on potassium 20 mEq daily, multivitamin daily, Pulmicort 0.5 mg b.i.d. He is on Brovana 15 mcg b.i.d., DuoNeb updrafts. He is on Mucomyst daily. He is on Flomax 0.4 mg at bedtime, Betapace 80 mg b.i.d., HISTORY AND PHYSICAL [id number] GABINO ESTRADA Singulair 10 mg at bedtime. He is on Solu-Medrol 40 mg every 12 hours, Mag-Ox 400 mg b.i.d., Xalatan eye drops, Mucinex-D 1 tab b.i.d., Neurontin 300 mg at bedtime, Proscar 5 mg at bedtime, Colace 100 mg b.i.d., and polyethylene glycol 17 grams in 8 ounces of water daily. HABITS: No alcohol or tobacco use. FAMILY HISTORY: Noncontributory. SOCIAL HISTORY: The patient wants to return back home with his and get back to his prior level of functioning. REVIEW OF SYSTEMS: GENERAL: Does complain of weakness and fatigue. HEENT: Denies cold, cough, or congestion. CARDIOVASCULAR: Denies any chest pain. PHYSICAL EXAMINATION: VITAL SIGNS: Stable, afebrile. GENERAL: Elderly black gentleman, in no acute distress upon exam. HEENT: Normocephalic and atraumatic. Mucosa moist. NECK: Supple. No lymphadenopathy. LUNGS: Clear in the upper veronica, but decreased breath sounds in both bases. CARDIOVASCULAR: Regular rate and rhythm. Does have a holosystolic murmur. ABDOMEN: Soft, benign, and nondistended. Positive bowel sounds times 4. EXTREMITIES: No clubbing, cyanosis or edema. NEUROLOGIC: Does have some slow mentation. Does have some noted proximal muscle weakness. LABORATORY DATA: Sodium is 145, potassium is 4.9, BUN and creatinine of 70 and 2.5, and blood sugar was noted to be 85. His white count is pending at this time. 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 The patient has potential to make improvement. We will institute the following multidisciplinary therapies including, but not limited to, physical, occupational, respiratory, speech, nutritional services, prosthetics, and orthotics. Given his complex medical condition and risk for more complications, rehabilitation services cannot be provided at a lower level of care such as a skilled nurse facility. PLAN: 1. Admit to [facility] for an inpatient therapy to include the following disciplines; A. Physical therapy to improve gait, all transfer skills, and bed mobility to modified independent level. B. Occupational therapy to a modified independent level. C. Case management to assist with discharge planning and placement options. D. Nutrition to assist with nutritional needs. E. Rehabilitation nursing to assist in monitoring the patient's underlying medical conditions and to assist with any type of bowel or bladder management. 2. The patient's current medications and medical care will be continued. 3. The patient will be placed on standard fall precautions. 4. The patient's estimated length of stay is approximately 7-10 days. HISTORY AND PHYSICAL [id number] GABINO ESTRADA 5. We will discuss the patient during care team staff meeting this week. TRANSINT:[id number] Voice Confirmation ID: [id number] DOCUMENT ID: [id number] JEWELL notes whether there has been none or any medical/functional change since admission: - No change since pre-admission screen. JEWELL attests patient continues to be appropriate for IRF: - Continues to be appropriated. JULIETTE LIMA MD at 1611 CC: [id number] DICTATION DATE: 06/30/19 0831 ELECTROPLATING WORKER: 06/30/19 1028 [place] [address]
--- NOTE | 2019-07-01 17:04 | NUR ---
CARE TEAM MEETING: PATIENT IS NEW TO UNIT AND WILL BE RA AT NEXT MEETING. HIS PCP IS DR. STEPHENS. DME AT HOME IS O2, WALKER, SHOWER CHAIR AND NEBULIZER. WILL CONTINUE TO FOLLOW WITH PATIENT AND WILL ASSIST WITH NEEDS.
--- NOTE | 2019-07-01 19:55 | NUR ---
RESTING IN BED WITH EYES CLOSED AND RESPIRATIONS UNLABORED. O2/4L ON PER HIGH FLOW OXYGEN. GONZALES PATENT. NO DISTRESS NOTED. CALL LIGHT IN REACH.
[2019-07-01 22:13] VITALS: BP 118/61
--- NOTE | 2019-07-02 02:13 | NUR ---
SLEEPING WITH RESPIRATIONS UNLABORED. NO DISTRESS NOTED.
--- NOTE | 2019-07-02 05:24 | NUR ---
QUIET HOURS. NO ACUTE CHANGES IN CONDITION THIS SHIFT. NO ACUTE DISTRESS NOTED.
[2019-07-02 08:39] LABS: ANION GAP 6.4 mmol/L (8-16); CALCIUM 8.1 mg/dL (8.5-10.1); CARBON DIOXIDE 34.5 mmol/L (21.0-32.0); CREATININE - SERUM 2.4 mg/dL (0.6-1.3); POTASSIUM - SERUM 4.9 mmol/L (3.5-5.1)
[2019-07-02 08:40] LABS: BASOPHILS 0.2 % (0-2); EOSINOPHILS 0.4 % (0-7); HEMATOCRIT 31.4 % (42.0-54.0); HEMOGLOBIN 9.6 g/dL (13.5-17.5); IMMATURE GRANULOCYTES 1.9 % (0-5); LYMPHOCYTES 8.2 % (15-50); MCH 33.2 pg (26.0-34.0); MCHC 30.6 g/dL (31.0-37.0); MCV 108.7 fL (80.0-100.0); MEAN PLATELET VOLUME 10.7 fL (7.4-10.4); MONOCYTES 9.7 % (2-11); NEUTROPHILS 79.6 % (40-80); RBC 2.89 10x6/uL (4.20-6.10); RDW 14.6 % (11.5-14.5); WBC 5.4 10x3/uL (4.8-10.8)
[2019-07-02 08:42] LABS: PLATELET COUNT 259 10x3/uL (130-400)
[2019-07-02 09:41] VITALS: BP 136/78
--- NOTE | 2019-07-02 17:49 | NUR ---
PT RESTING IN BED WITH EYES OPEN CALL LIGHT IN REACH NO PROBLEMS WILL MONITER
--- NOTE | 2019-07-02 18:42 | NUR ---
BEDSIDE REPORT COMPLETE. PT LYING IN BED ON LEFT SIDE EYES CLOSED RESTING. RR EVEN AND UNLABORED. CONTINUES ON 4L HF NC. DENIES ANY NEEDS OR PAIN. GONZALES PATENT FREE FROM KINKS. LEFT FOREARM IV PATENT. CL IN REACH. FALL PRECAUTIONS IN PLACE. WILL CONTINUE TO MONITOR
--- NOTE | 2019-07-02 18:49 | NUR ---
PT RESTING IN BED WITH EYES OPEN CALL LIGHT IN REACH NO PROBLEMS WILL MONITER
[2019-07-02 21:30] VITALS: BP 138/82
--- NOTE | 2019-07-03 00:54 | NUR ---
PT LYING IN BED ON LEFT SIDE EYES CLOSED RESTING. RR EVEN AND UNLABORED. CONTINUES ON 4L VIA HF NC. CL IN REACH
--- NOTE | 2019-07-03 03:04 | NUR ---
PT LYING IN BED ON LEFT SIDE EYES CLOSED RESTING. RR EVEN AND UNLABORED. CL IN REACH
--- NOTE | 2019-07-03 06:10 | NUR ---
PT LYING IN BED ON RIGHT SIDE EYES CLOSED RESTING. RR EVEN AND UNLABORED. CL IN REACH
[2019-07-03 08:00] VITALS: BP 129/87
--- NOTE | 2019-07-03 08:26 | NUR ---
PATIENT IS ALERT/ORIET. VERY HARD OF HEARING. BED ALARM ON. CALL LIGHT WITHIN REACH. VOICES NO NEEDS AT THIS TIME. WILL CONTINUE WITH PLAN OF CARE
--- NOTE | 2019-07-03 10:07 | NUR ---
PATIENT WORKING WITH PHYSICAL THERAPIST IN REHAB ROOM. DENIES ANY PAIN/DISC AT THIS TIME.
--- NOTE | 2019-07-03 13:37 | NUR ---
PATIENT HELPED BACK TO BED AFTER THERAPY. TOTAL ASST OF TWO PERSON FOR TRANSFER FROM WHEELCHAIR TO BED.
--- NOTE | 2019-07-03 19:25 | NUR ---
BEDSIDE REPORT COMPLETE. PT LYING IN BED ON LEFT SIDE EYES CLOSED RESTING. CONTINUES ON 4L VIA HF NC. NO SIGNS OF ACUTE DISTRESS NOTED. LEFT FOREARM IV PATENT. GONZALES CATH PATENT FREE OF KINKS. CL IN REACH. FALL PRECAUTIONS IN PLACE
[2019-07-03 20:30] VITALS: BP 138/69
--- NOTE | 2019-07-03 23:25 | NUR ---
PT LYING IN BED ON LEFT SIDE WATCHING TV. DENIES ANY NEEDS OR PAIN. RR EVEN AND UNLABORED. CL IN REACH
--- NOTE | 2019-07-04 04:37 | NUR ---
PT LYING IN BED ON LEFT SIDE EYES CLOSED RESTING. RR EVEN AND UNLABORED. CL IN REACH.
[2019-07-04 08:00] VITALS: BP 152/88
--- NOTE | 2019-07-04 08:00 | NUR ---
PATIENT SITTING UP IN BED TO EAT BREAKFAST. BED ALARM ON. CALL LIGHT WITHIN REACH. VOICES NO NEEDS AT THIS TIME. WILL CONTINUE WITH PLAN OF CARE
--- NOTE | 2019-07-04 11:28 | NUR ---
PATIENT RESTING IN BED WATCHING T.V. CALL LIGHT WITHIN REACH. VOICES NO NEEDS AT THIS TIME.
--- NOTE | 2019-07-04 14:01 | NUR ---
PATIENT RESTING IN BED. TOTAL ASST OF TWO FOR TRANSFER FROM BED TO WHEELCHAIR
--- NOTE | 2019-07-04 18:45 | NUR ---
BEDSIDE REPORT COMPLETE. PT LYING IN BED WATCHING TV. DENIES ANY NEEDS OR PAIN. RR EVEN AND UNLABORED. CONTINUES ON 4L VIA NC. NOTICED BED DAMP GONZALES CATH LEAKING WILL DC GONZALES. LEFT FOREARM IV PATENT NO REDNESS OR SWELLING AT SITE. CL IN REACH. FALL PRECAUTIONS IN PLACE.
--- NOTE | 2019-07-04 19:30 | NUR ---
REMOVED 8ML SALINE FROM CATH BULB. DC GONZALES WITH CATH TIP INTACT. PT TOLERATED WELL. COMPLETE LINEN CHANGE. INFORMED PT TO LET US KNOW IF HE HAS ANY DISCOMFORT OR URGE TO URINATE. PT VERBALIZED UNDERSTANDING. WILL CONTINUE TO MONITOR
[2019-07-04 20:00] VITALS: BP 138/72
--- NOTE | 2019-07-04 21:24 | NUR ---
PT VOIDED 100ML CLEAR YELLOW URINE.
--- NOTE | 2019-07-05 00:45 | NUR ---
PT LYING IN BED ON LEFT SIDE EYES CLOSED RESTING. RR EVEN AND UNLABORED. CL IN REACH
--- NOTE | 2019-07-05 04:14 | NUR ---
PT LYING IN BED ON LEFT SIDE EYES CLOSED RESTING. RR EVEN AND UNLABORED. CL IN REACH
--- NOTE | 2019-07-05 06:34 | NUR ---
PT LYING IN BED ON LEFT SIDE EYES CLOSED RESTING. RR EVEN AND UNLABORED. CL IN REACH
[2019-07-05 06:53] LABS: ANION GAP 7.9 mmol/L (8-16); CALCIUM 8.2 mg/dL (8.5-10.1); CARBON DIOXIDE 33.5 mmol/L (21.0-32.0); CREATININE - SERUM 2.3 mg/dL (0.6-1.3); POTASSIUM - SERUM 4.4 mmol/L (3.5-5.1)
[2019-07-05 06:54] LABS: BASOPHILS 0.1 % (0-2); EOSINOPHILS 0 % (0-7); HEMATOCRIT 27.2 % (42.0-54.0); HEMOGLOBIN 8.6 g/dL (13.5-17.5); LYMPHOCYTES 6.9 % (15-50); MCH 33.9 pg (26.0-34.0); MCHC 31.6 g/dL (31.0-37.0); MCV 107.1 fL (80.0-100.0); MEAN PLATELET VOLUME 10.4 fL (7.4-10.4); MONOCYTES 4.7 % (2-11); NEUTROPHILS 85.3 % (40-80); RBC 2.54 10x6/uL (4.20-6.10); RDW 14.9 % (11.5-14.5); WBC 7.3 10x3/uL (4.8-10.8)
[2019-07-05 07:10] LABS: PLATELET COUNT 181 10x3/uL (130-400)
--- NOTE | 2019-07-05 07:30 | NUR ---
PT SLEEPING POSITIONED ON LEFT SIDE. [address] WITH RESP EVEN AND UNLABORED. NO APPARENT PROBLEMS OR NEEDS AT THIS TIME.
[2019-07-05 08:00] VITALS: BP 132/73
--- NOTE | 2019-07-05 16:11 | NUR ---
DR DAMON HERE AND REQUESTED BLADDER SCAN. RESULTS [address] WITH NO NEW ORDERS RECEIVED.
--- NOTE | 2019-07-05 19:18 | NUR ---
GREETED PATIENT AND INTRODUCED MYSELF HIS NURSE. PATIENT IS LAYING IN BED RESTING AT THIS TIME. FAMILY MEMBER AT BEDSIDE VISITING. O2 AT 4L IN USE VIA NC. RESPIRATIONS EVEN. NO S/S OF DISTRESS. CALL LIGHT IN REACH.
[2019-07-05 22:21] VITALS: BP 126/90
--- NOTE | 2019-07-06 01:46 | NUR ---
PT. RESTING QUIETLY WITH EYES CLOSED. RESPIRATIONS EVEN. NO S/S OF DISTRESS. O2 AT 4L IN USE VIA NC. CALL LIGHT IN REACH.
--- NOTE | 2019-07-06 04:07 | NUR ---
PT. AWAKE AND SITTING ON SIDE OF BED. REPOSITIONED FOR COMFORT. CALL LIGHT IN REACH.
[2019-07-06 08:00] VITALS: BP 130/71
--- NOTE | 2019-07-06 10:00 | NUR ---
I have reviewed this patient and I concur with the Shift Assessment completed by the Licensed Practical Nurse today this shift.
--- NOTE | 2019-07-06 13:50 | NUR ---
Nutrition Follow-up: Diet: Cardiac + Ensure with meals PO intake: ~77% average x last 12 meals; reports good appetite, drinks Ensure Last BM: 07/05/19 x 4. WT: 179# (06/30/19) Meds noted: solumedrol Labs noted: BUN 71(H), Cr 2.3(H), GFR 29(L), Glu 151(H) Recommend continue current diet. RD following.
--- NOTE | 2019-07-06 19:00 | NUR ---
GREETED PATIENT AND INTRODUCED MYSELF HIS NURSE. PATIENT IS LAYING IN BED RESTING AT THIS TIME. O2 AT 4L IN USE HIGH FLOW NC. RESPIRATIONS EVEN. NO S/S OF DISTRESS. BEDSIDE SHIFT REPORT COMPLETE FROM OFF GOING NURSE. PATIENT DENIES ANY NEEDS AT THIS TIME. CALL LIGHT IN REACH.
[2019-07-06 20:42] VITALS: BP 127/81
--- NOTE | 2019-07-07 02:27 | NUR ---
RESPIRATORY ON THE UNIT TRYING TO CONVINCE PT. TO WEAR HIS TRILOGY. PT. IS REFUSING TO WEAR TRILOGY AND STATES " I JUST CANT GET ANY AIR." RESPIRATORY CHECKED PTS. O2 SATURATION AND PT IS SATURATED AT 96%. DR. JACKSON NOTIFIED.
--- NOTE | 2019-07-07 02:33 | NUR ---
DR. JACKSON CALLED BACK AND TALKED WITH BLANCHE DEE AND TOLD HER TO GO AHEAD AND REMOVE THE TRILOGY AND HE WOULD VISIT WITH FAMILY AND PATIENT TOMORROW.
--- NOTE | 2019-07-07 02:37 | NUR ---
PLACED PT TRILOGY ON FOR SLEEP. PT KEEPS STATING CANT FEEL THE AIR. PT SPO2 IS 96%. ENCOURAGED PT TO CONT TO WEAR THE TRILOGY. PT CONT TO BECOME MORE AGITATED. NURSE WANTED CALLED STATING PT WOULD WORRY HIMSELF SICK OVER THIS. PLACED CALL TO RENETTA VIVAR WHO SAID I COULD ALLOW PT TO TAKE OFF AND WEAR O2 FOR THE NIGHT AND HAVE ABGS DRAWN AT 0800.
[2019-07-07 08:00] VITALS: BP 142/80
--- NOTE | 2019-07-07 09:00 | NUR ---
PT AM MEDS ADMINISTERED. PT CHUN SIFUENTES. NATHALIE.
[2019-07-07 09:16] LABS: BASOPHILS 0.2 % (0-2); EOSINOPHILS 0 % (0-7); HEMATOCRIT 29.4 % (42.0-54.0); HEMOGLOBIN 8.9 g/dL (13.5-17.5); IMMATURE GRANULOCYTES 2.6 % (0-5); MCH 33.5 pg (26.0-34.0); MCHC 30.3 g/dL (31.0-37.0); MCV 110.5 fL (80.0-100.0); MEAN PLATELET VOLUME 10.6 fL (7.4-10.4); MONOCYTES 3.5 % (2-11); NEUTROPHILS 85.7 % (40-80); RBC 2.66 10x6/uL (4.20-6.10); RDW 15.4 % (11.5-14.5); WBC 6.5 10x3/uL (4.8-10.8)
[2019-07-07 09:20] LABS: ANION GAP 7.3 mmol/L (8-16); CALCIUM 8.1 mg/dL (8.5-10.1); CARBON DIOXIDE 36.5 mmol/L (21.0-32.0); CREATININE - SERUM 2.3 mg/dL (0.6-1.3); POTASSIUM - SERUM 4.8 mmol/L (3.5-5.1)
[2019-07-07 09:28] LABS: PLATELET COUNT 141 10x3/uL (130-400)
--- NOTE | 2019-07-07 18:58 | NUR ---
GREETED PATIENT AND INTRODUCED MYSELF HIS NURSE. PATIENT IS LAYING IN BED RESTING AT THIS TIME. O2 AT 4L IN USE VIA NC. RESPIRATIONS EVEN. NO S/S OF DISTRESS. DENIES ANY NEEDS AT THIS TIME. BEDSIDE SHIFT REPORT COMPLETED FROM OFF GOING NURSE. CALL LIGHT IN REACH.
[2019-07-07 22:11] VITALS: BP 129/68
--- NOTE | 2019-07-08 02:35 | NUR ---
PT. AWAKE IN RESTING QUIETLY. O2 AT 4L IN USE VIA HIGH FLOW NC. RESPIRATIONS EVEN. NO S/S OF DISTRESS. CALL LIGHT IN REACH.
--- NOTE | 2019-07-08 08:00 | NUR ---
PATIENT IS ALERT. HARD OF HEARING. FORGETFULL. BED ALARM ON. CALL LIGHT WITHIN REACH. VOICES NO NEEDS AT THIS TIME. WILL CONTINUE WITH PLAN OF CARE
[2019-07-08 08:43] VITALS: BP 110/65
--- NOTE | 2019-07-08 11:00 | NUR ---
PATIENT IN REHAB ROOM. WORKING WITH PHYSICAL THERAPIST. DENIES ANY PAIN/DISC AT THIS TIME.
--- NOTE | 2019-07-08 19:30 | NUR ---
PT SITTING UP TRYING TO USE URINAL. ASSISTED WITH IT. PT DENIES FURTHER NEEDS OR PAIN. PULLED PT UP IN BED. CL IN REACH. BED IN LOW SIDE RAILS X2. BED ALARM ON. RESP EVEN AND SLIGHTLY LABORED. O2 ON 4L VIA NC. BOWEL ACTIVE X4. A/O X4 WITH SOME CONFUSION AND FORGETFULNESS. WILL CONTINUE TO MONITOR.
[2019-07-08 22:10] VITALS: BP 11/58
--- NOTE | 2019-07-09 02:29 | NUR ---
ASSISTED ON BEDPAN. PT HAD LARGE SOFT BM. DENIES FURTHER NEEDS. CL IN REACH. WCTM
--- NOTE | 2019-07-09 02:53 | NUR ---
I have reviewed this patient and I concur with the Shift Assessment completed by the Licensed Practical Nurse today this shift.
--- NOTE | 2019-07-09 08:00 | NUR ---
PATIENT SITTING UP IN BED TO EAT BREAKFAST. ALERT/VERY HARD OF HEARING AND FORGETFULL. BED ALARM ON. CALL LIGHT WITHIN REACH. VOICES NO NEEDS AT THIS TIME. WILL CONTINUE WITH PLAN OF CARE
[2019-07-09 08:25] VITALS: BP 125/66
[2019-07-09 08:36] LABS: HEMATOCRIT 30.2 % (42.0-54.0); HEMOGLOBIN 9.2 g/dL (13.5-17.5); MCH 33.6 pg (26.0-34.0); MCHC 30.5 g/dL (31.0-37.0); MCV 110.2 fL (80.0-100.0); MEAN PLATELET VOLUME 10.6 fL (7.4-10.4); PLATELET COUNT 122 10x3/uL (130-400); RBC 2.74 10x6/uL (4.20-6.10); RDW 15.7 % (11.5-14.5); WBC 6.4 10x3/uL (4.8-10.8)
[2019-07-09 08:40] LABS: ANION GAP 3.7 mmol/L (8-16); CALCIUM 8.2 mg/dL (8.5-10.1); CARBON DIOXIDE 39.8 mmol/L (21.0-32.0); CREATININE - SERUM 2.5 mg/dL (0.6-1.3); POTASSIUM - SERUM 4.5 mmol/L (3.5-5.1)
[2019-07-09 08:52] LABS: LYMPHOCYTES 6 % (15-50); MONOCYTES 5 % (2-11); NEUTROPHILS 76 % (40-80); PLATELET ESTIMATE DECREASED
--- NOTE | 2019-07-09 10:30 | NUR ---
PATIENT IN REHAB ROOM. WORKING WITH OCCUPATIONAL THERAPIST. DENIES ANY PAIN/DISC AT THIS TIME
--- NOTE | 2019-07-09 14:45 | NUR ---
CARE TEAM MEETING: PATIENT SON ATTENDED THE MEETING. HIS QUESTIONS AND CONCERNS WERE ADDRESSED.DISCHARGE PLANS ARE FOR PATIENT TO RETURN HOME WITH [facility]. WILL CONTINUE TO FOLLOW WITH PATIENT.
[2019-07-09 17:17] LABS: ANION GAP 7.2 mmol/L (8-16); CALCIUM 7.7 mg/dL (8.5-10.1); CARBON DIOXIDE 37.3 mmol/L (21.0-32.0); CREATININE - SERUM 2.5 mg/dL (0.6-1.3); POTASSIUM - SERUM 4.5 mmol/L (3.5-5.1)
--- NOTE | 2019-07-09 18:45 | NUR ---
BEDSIDE REPORT COMPLETE. PT LYING IN BED ON RIGHT SIDE EYES CLOSED RESTING. RR EVEN AND UNLABORED. CL IN REACH. FALL PRECAUTIONS IN PLACE. WILL CONTINUE TO MONITOR
[2019-07-09 21:50] VITALS: BP 113/52
--- NOTE | 2019-07-09 23:54 | NUR ---
PT LYING IN BED ON LEFT SIDE EYES CLOSED RESTING. RR EVEN AND UNLABORED. CONTINUES ON 4L VIA NC. CL IN REACH
--- NOTE | 2019-07-10 03:41 | NUR ---
PT LYING IN BED ON LEFT SIDE EYES CLOSED RESTING. RR EVEN AND UNLABORED. CL IN REACH
--- NOTE | 2019-07-10 05:21 | NUR ---
PT LYING IN BED ON LEFT SIDE EYES CLOSED RESTING. CONTINUES ON 4L VIA NC. CL IN REACH
[2019-07-10 07:00] VITALS: BP 114/57
--- NOTE | 2019-07-10 12:00 | NUR ---
DR TRAN HERE TO DISCUSS PT CONDITION WITH DAUGHTER IN ROOM DISCUSSING HOSPICE.
--- NOTE | 2019-07-10 14:00 | NUR ---
PT RESPONDS TO VERBAL STIMULU PT RESTING WITH EYES CLOSED NO DISTRESS NOTED WILL MONITER
--- NOTE | 2019-07-10 15:09 | NUR ---
I have reviewed this patient and I concur with the Shift Assessment completed by the Licensed Practical Nurse today this shift.
--- NOTE | 2019-07-10 18:33 | NUR ---
PT RESTING IN BED WITH EYES OPEN CALL LIGHT IN REACH SON AT BEDSIDE WILL MONITER
--- NOTE | 2019-07-10 19:24 | NUR ---
GREETED PATIENT AND INTRODUCED MYSELF HIS NURSE. PT. RESTING AT THIS TIME. O2 AT 4L IN USE HIGH FLOW NC. RESPIRATIONS EVEN. NO S/S OF DISTRESS. FAMILY MEMBER AT BEDSIDE. PT DENIES ANY NEEDS AT THIS TIME. CALL LIGHT IN REACH.
[2019-07-10 19:45] VITALS: BP 110/61
--- NOTE | 2019-07-11 00:59 | NUR ---
PT. RESTING QUIETLY WATCHING TV. RESPIRATORY ON FLOOR TO ADMINISTER BREATHING TREATMENT. WCTM. CALL LIGHT IN REACH.
--- NOTE | 2019-07-11 03:01 | NUR ---
PT. RESTING QUIETLY WITH EYES CLOSED. O2 AT 4L IN USE VIA HIGH FLOW NC. RESPIRATIONS EVEN. NO S/S OF DISTRESS. CALL LIGHT IN REACH.
--- NOTE | 2019-07-11 08:00 | NUR ---
SHIFT ASSMT COMPLETED.BREAKFAST GIVEN.TRILOGY UNIT IN PLACE.CL IN REACH.
[2019-07-11 10:08] VITALS: BP 132/67
--- NOTE | 2019-07-11 16:00 | NUR ---
RESTING QUIETLY.CL IN REACH
--- NOTE | 2019-07-11 19:11 | NUR ---
GREETED PATIENT AND INTRODUCED MYSELF HIS NURSE. PATIENT IS LAYING IN BED RESTING AT THIS TIME. O2 AT 4L IN USE HIGH FLOW NC. RESPIRATIONS EVEN. NO S/S OF DISTRESS. DENIES ANY NEEDS AT THIS TIME. CALL LIGHT IN REACH.
[2019-07-11 19:30] VITALS: BP 134/74
--- NOTE | 2019-07-12 01:02 | NUR ---
PT. AWAKE LAYING IN BED RESTING QUIETLY. O2 AT 4L IN USE VIA NC. RESPIRATIONS EVEN. NO S/S OF DISTRESS. DENIES ANY NEEDS. CALL LIGHT IN REACH.
[2019-07-12 07:08] LABS: BASOPHILS 0.2 % (0-2); EOSINOPHILS 0 % (0-7); HEMATOCRIT 26.3 % (42.0-54.0); HEMOGLOBIN 8.1 g/dL (13.5-17.5); IMMATURE GRANULOCYTES 2.4 % (0-5); LYMPHOCYTES 12.3 % (15-50); MCH 33.2 pg (26.0-34.0); MCHC 30.8 g/dL (31.0-37.0); MCV 107.8 fL (80.0-100.0); NEUTROPHILS 75.1 % (40-80); PLATELET COUNT 139 10x3/uL (130-400); RBC 2.44 10x6/uL (4.20-6.10); RDW 15.6 % (11.5-14.5); WBC 5.5 10x3/uL (4.8-10.8)
[2019-07-12 08:14] VITALS: BP 163/87
--- NOTE | 2019-07-12 08:15 | NUR ---
PT RESTING IN BED WITH EYES OPEN CALL LIGHT IN REACH NO PROBLEMS WILL MONITER
--- NOTE | 2019-07-12 13:56 | NUR ---
Nutrition Follow-up: Chart reviewed. Noted pt is refusing respiratory tx, has advanced COPD, possible D/C to home hospice. Diet: Cardiac PO intake: ~64% average x last 9 meals; he is drinking Ensure Last BM: 07/12/19. WT: 179# (06/30/19) Meds noted: prednisone, miralax, lasix Labs noted: BUN 64(H), Cr 2.5(H), GFR 26(L), Glu 150(H) Recommend continue diet or liberalize to regular. Encouraged PO intake. Continue oral nutrition supplements. RD following.
--- NOTE | 2019-07-12 17:47 | NUR ---
PT RESTING IN BED WITH OPEN CALL LIGHT IN REACH WILL MONITER
--- NOTE | 2019-07-12 18:40 | NUR ---
BEDSIDE REPORT COMPLETE. PT LYING IN BED ON LEFT SIDE EYES CLOSED RESTING. CONTINUES ON 4L VIA NC. DENIES ANY NEEDS OR PAIN. NO FAMILY AT BEDSIDE. CALL LIGHT WITHIN REACH. FALL PRECAUTIONS IN PLACE.
[2019-07-12 20:52] VITALS: BP 129/78
--- NOTE | 2019-07-12 23:00 | NUR ---
PT LYING IN BED ON LEFT SIDE EYES CLOSED RESTING. RR EVEN AND UNLABORED. CL IN REACH
--- NOTE | 2019-07-13 02:38 | NUR ---
PT LYING IN BED ALERT AND AWAKE. DENIES ANY NEEDS. C/O MILD DISCOMFORT LOWER BACK AND LEGS. CL IN REACH
--- NOTE | 2019-07-13 06:20 | NUR ---
PT LYING IN BED AWAKE AND ALERT. DENIES ANY NEEDS OR PAIN. CONTINUES ON 4L VIA NC. CL IN REACH
[2019-07-13 07:13] LABS: CALCIUM 7.8 mg/dL (8.5-10.1); CARBON DIOXIDE 36.1 mmol/L (21.0-32.0); CREATININE - SERUM 2.5 mg/dL (0.6-1.3); POTASSIUM - SERUM 4.1 mmol/L (3.5-5.1)
[2019-07-13 07:52] VITALS: BP 121/65
--- NOTE | 2019-07-13 08:15 | NUR ---
PT AM MEDS ADMINISTERED. PT CHUN SIFUENTES. NATHALIE.
--- NOTE | 2019-07-13 15:52 | NUR ---
VISITED WITH SON AND AT THIS TIME PATIENT WILL DISCHARGE HOME WITH [facility]. PATIENT WILL NEED A WHEELCHAIR AT DISCHARGE. HOSPICE ON HOLD AT THIS TIME. WILL CONTINUE TO FOLLOW WITH PATIENT.
--- NOTE | 2019-07-13 18:55 | NUR ---
BEDSIDE REPORT COMPLETE. PT LYING IN BED ON LEFT SIDE EYES CLOSED RESTING. EASILY AROUSED WITH VERBAL STIMULI. CONTINUES ON 4L VIA NC. DENIES ANY NEEDS OR PAIN. EMPTIED 200 CLEAR YELLOW URINE FROM URINAL. CL IN REACH. FALL PRECAUTIONS IN PLACE. WILL CONTINUE TO MONITOR
[2019-07-13 21:04] VITALS: BP 103/54
--- NOTE | 2019-07-14 00:43 | NUR ---
PT LYING IN BED SUPINE EYES CLOSED RESTING. RR EVEN AND UNLABORED. CL IN REACH
--- NOTE | 2019-07-14 03:59 | NUR ---
PT LYING IN BED EYES CLOSED RESTING. CONTINUES ON 4L VIA NC. CL IN REACH
[2019-07-14 07:57] VITALS: BP 134/72
[2019-07-14] MEDS ORDERED: BETAPACE 80 MG80 MG PO (07:58)
[2019-07-14] MEDS ORDERED: FUROSEMIDE20 MG PO (07:58)
[2019-07-14] MEDS ORDERED: PREDNISONE20 MG PO (07:59)
--- NOTE | 2019-07-14 18:35 | NUR ---
BEDSIDE REPORT COMPLETE. PT LYING IN BED VISITING WITH FAMILY. DENIES ANY NEEDS OR PAIN. RR EVEN AND UNLABORED. CONTINUES ON 2L VIA NC. CL IN REACH. FALL PRECAUTIONS IN PLACE. WILL CONTINUE TO MONITOR
[2019-07-14 22:06] VITALS: BP 146/76
--- NOTE | 2019-07-15 01:59 | NUR ---
PT LYING IN BED ON LEFT SIDE EYES CLOSED RESTING. CONTINUES ON 2L VIA NC. CL IN REACH
--- NOTE | 2019-07-15 04:37 | NUR ---
PT LYING IN BED ON LEFT SIDE EYES CLOSED RESTING. RR EVEN AND UNLABORED. CONTINUES ON 4L VIA HF NC. CL IN REACH
--- NOTE | 2019-07-15 07:23 | NUR ---
PT RESTING IN BED WITH EYES OPEN CALL LIGHT IN REACH WILL MONITER
[2019-07-15 08:59] VITALS: BP 123/66
--- NOTE | 2019-07-15 09:47 | NUR ---
PATIENT DISCHARGING TO HIS HOME TODAY WITH [facility]. [facility] WILL PROVIDE THERAPY AT HOME. [facility] WILL DELIVER A WHEELCHAIR TO PATIENT.DR. STEPHENS 07/22/2019 @ 10:00. PATIENT CHOICE FORM SIGNED FOR HOME HEALTH AND COMPARE DATA REVIEWED. PATIENT FAMILY VOICES UNDERSTANDING. [facility] FORM SIGNED AND EXPLAINED, ONE FILED IN CHART AND ONE GIVEN TO PATIENT. [employer] INSTRUCTIONS FAXED TO PCP, HOME HEALTH AND REVIEWED WITH PATIENT.
--- NOTE | 2019-07-15 12:00 | NUR ---
PT DISCHARGED TO HOME VIA WHEELCHAIR WITH SONS DISCHARGE MEDS REVIEWED WITH PTS AND SONS PT WAS ASSISTED 3 PERSON TRANSFER TO [facility] WHEELCHAIR WAS DELIVERED FROM [facility] PT LEFT ON 4 LITERS O2 PER NASAL CANULA. PT TOLERATED WELL
[2019-07-15] MEDS ORDERED: BROVANA15 MCG/2 M INH ×2 (15:31→15:33)
[2019-07-15] MEDS ORDERED: PULMICORT0.5 MG/21 INH (15:32)
[2019-07-15] MEDS ORDERED: ALBUTEROL2.5 MG/3 M INH (15:34)
[2019-07-15] MEDS ORDERED: XOPENEX 0.0.63 MG/3 UPD (15:34)
[2019-07-15] MEDS ORDERED: XOPENEX 0.0.63 MG/3 (15:35)
== END 2019-07-15 13:45 | disposition home health service (06) | DRG 91 ==
LOC: D.REHAB 16:56
PROVIDERS: Internal Medicine; ADMIT Emergency Medicine; ATTEND Emergency Medicine
DX: G72.89 Other specified myopathies (principal); J96.21 Acute and chronic respiratory failure with hypoxia; J96.22 Acute and chronic respiratory failure with hypercapnia; J15.9 Unspecified bacterial pneumonia; R04.2 Hemoptysis; J44.1 Chronic obstructive pulmonary disease with (acute) exacerbation; N17.9 Acute kidney failure, unspecified; J47.0 Bronchiectasis with acute lower respiratory infection; I12.9 Hypertensive chronic kidney disease with stage 1 through stage 4 chronic kidney disease, or unspecified chronic kidney disease; N18.9 Chronic kidney disease, unspecified; N40.0 Benign prostatic hyperplasia without lower urinary tract symptoms; G62.9 Polyneuropathy, unspecified; D53.9 Nutritional anemia, unspecified; K59.00 Constipation, unspecified; M19.90 Unspecified osteoarthritis, unspecified site; B96.5 Pseudomonas (aeruginosa) (mallei) (pseudomallei) as the cause of diseases classified elsewhere; I25.10 Atherosclerotic heart disease of native coronary artery without angina pectoris; J09.X2 Influenza due to identified novel influenza A virus with other respiratory manifestations; E78.5 Hyperlipidemia, unspecified; R53.1 Weakness